=== PATIENT | male | born 1995 | race Caucasian/White ===

== ENCOUNTER 2017-12-29 14:23 | Emergency (ER) | payer OTHER ==
[2017-12-29] MEDS ORDERED: Ketorolac INJ* 30 MG/ML 1 ML VIAL IV PUSH ONE (15:12)
[2017-12-29] MEDS ORDERED: NS 0.9% 1000 ML* 1,000 ML IV ONE (15:13)
--- NOTE | 2017-12-29 15:13 | ED ---
HPI Chest Pain - HPI Summary HPI Summary: This is quincy Duarte documenting for attending Tyron Moore M.D. Pt is a 22 y/o F w/ c/o chest pain radiating to neck and ears onsetting this morning. While mowing the lawn this morning, Pt reports feeling light headed with pain onset afterwards. He drove himself to ED. In the room, pain was rated 10/10 and described as squeezing. Per triage, Pt is having trouble standing and holding his head up. He denies coughing, fever and chills in the room. He notes that he has had a pacemaker since 2011. He claims AICD was meant to be changed recently but has not done so. Pt has Hx of burgada syndrome. On triage, it is noted that Pt states he had several energy drinks today and that nothing aggravates/alleviates Sx. - History of Current Complaint Chief Complaint: EDChestPainROMI Time Seen by Provider: 12/29/17 14:47 Hx Obtained From: Patient Onset/Duration: Started Hours Ago Timing: Constant Current Severity: Severe Pain Intensity: 10 Pain Scale Used: 0-10 Numeric - 10/10 Chest Pain Location: Diffuse Chest Pain Radiates: Yes Chest Pain Radiates To:: Neck, Other - ears Character: Pressure/Squeezing Aggravating Factor(s): Nothing Alleviating Factor(s): Nothing Associated Signs and Symptoms: Positive: Chest Pain, Other: - light headedness, difficulty standing and holding head up. Negative: Fever, Chills, Cough - Allergy/Home Medications Allergies/Adverse Reactions: Allergies Allergy/AdvReac Type Severity Reaction Status Date / Time No Known Allergies Allergy Verified 11/26/13 21:35 PMH/Surg Hx/FS Hx/Imm Hx Endocrine/Hematology History: Denies: Hx Diabetes Cardiovascular History: Reports: Hx Pacemaker/ICD, Other Cardiovascular Problems /Disorders - Hx of Brugada Syndrome Denies: Hx Congestive Heart Failure, Hx Hypertension History: Denies: Hx Renal Disease Sensory History: Denies: Hx Legally Blind - Surgical History Surgery Procedure, Year, and Place: HX OF METAL IN RIGHT EYE. Infectious Disease History: No Infectious Disease History: Denies: Traveled Outside the [place] in Last 30 Days - Family History Known Family History: Negative: Blood Disorder - Social History Alcohol Use: Rare Substance Use Type: Reports: Marijuana Substance Use Comment - Amount & Last Used: occasional Type: Cigarettes Review of Systems Negative: Fever, Chills Positive: Chest Pain - diffuse, radiating to neck and ears Negative: Cough Neurological: Other - light-headed, difficulty standing and holding head up All Other Systems Reviewed And Are Negative: Yes Physical Exam - Summary Physical Exam Summary: GENERAL: Patient is a well developed and nourished male who appears to be uncomfortable. Patient is not in any acute respiratory distress. HEAD AND FACE: Normocephalic EYES: PERRLA, EOMI x 2. EARS: Hearing grossly intact. MOUTH: Oropharynx within normal limits. NECK: Supple, trachea is midline, no adenopathy, no JVD, no carotid bruit. CHEST: Symmetric, no tenderness at palpation LUNGS: Clear to auscultation bilaterally. No wheezing or crackles. CVS: Regular rate and rhythm, S1 and S2 present, no murmurs or gallops appreciated. ABDOMEN: Soft, non-tender. Bowel sounds are normal. No abdominal abnormal pulsations. EXTREMITIES: Full ROM in all major joints, no edema, no cyanosis or clubbing. NEURO: Alert and oriented x 3. No acute neurological deficits. Speech is normal and follows commands. SKIN: Dry and warm Triage Information Reviewed: Yes Vital Signs On Initial Exam: Initial Vitals Temp Pulse Resp BP Pulse Ox 96.5 F 109 20 148/86 100 12/29/17 14:25 12/29/17 14:25 12/29/17 14:25 12/29/17 14:25 12/29/17 14:25 Vital Signs Reviewed: Yes Diagnostics - Vital Signs Vital Signs Temp Pulse Resp BP Pulse Ox 12/29/17 14:25 96.5 F 109 20 148/86 100 - Laboratory Result Diagrams: 12/29/17 15:11 12/29/17 15:11 Lab Statement: Any lab studies that have been ordered have been reviewed, and results considered in the medical decision making process. - Radiology CXR Xray Interpretation: No Acute Changes Radiology Interpretation Completed By: Radiologist - No evidence for acute intrathoracic disease. This report was reviewed by ED physician. - EKG 1435 Cardiac Rate: Tachycardia - Rate of 102 BPM EKG Rhythm: Sinus Tachycardia EKG Interpretation: brugaba syndrome is present Re-Evaluation - Re-Evaluation First Eval Re-Evaluation Time: 15:10 Comment: Discussed test results and the likely possibility of admission. Second Eval Re-Evaluation Time: 17:13 Comment: Dr. Moore was informed Pt changed his mind about admission and that he wanted to leave AMA. Dr. Moore went into the room to discuss the importance of his admission to the hospital for his health given his Sx and test results. Pt still wants to leave hospital and will be discharged to home AMA. Chest Pain Course/Dx - Course Assessment/Plan: Pt is a 22 y/o F w/ c/o chest pain radiating to neck and ears onsetting this morning. While mowing the lawn this morning, Pt reports feeling light headed with pain onset afterwards. He drove himself to ED. In the room, pain was rated 10/10 and described as squeezing. Per triage, Pt is having trouble standing and holding his head up. He denies coughing, fever and chills in the room. He notes that he has had a pacemaker since 2011. AICD was meant to be changed recently but has not done so. Pt has Hx of burgada syndrome. CXR and EKG were done and reviewed, with impressions listed above. Troponin was 0.07. At 14:40, Dr. Cruz was consulted, and he notes possible admission of Pt. At 15 :30, Dr. Palumbo was consulted and accepts admission of Pt with a diagnosis of chest pain. At 17:13, Dr. Moore was informed Pt changed his mind about admission and that he wanted to leave AMA. Dr. Moore went into the room to discuss the importance of his admission to the hospital for his health given his Sx and test results. Pt still wants to leave hospital and will be discharged to home AMA and with a diagnosis of chest pain. - Diagnoses Provider Diagnoses: Chest pain - Provider Notifications Discussed Care Of Patient With: Gerson Cruz Time Discussed With Above Provider: 14:40 Instructed by Provider To: Other - 14:40 -- Dr. Cruz was consulted for admission of patient; he notes possible acceptance of Pt. 15:30 -- Dr. Palumbo was consulted for admission of Pt at 15:30. Dr. Palumbo accepts Pt for admission to hospital. Discharge - Sign-Out/Discharge Documenting (check all that apply): Patient Departure - discharge; Pt was originally admitted to hospital but he changed his mind about admission AMA. - Discharge Plan Condition: Fair Disposition: AGAINST MEDICAL ADVICE Patient Education Materials: Chest Pain (ED) Referrals: Tian Albert DO [Primary Care Provider] - 2 Days Additional Instructions: Return to ED for any new or worsening symptoms. - Billing Disposition and Condition Condition: FAIR Disposition: Against Medical Advice
[2017-12-29] MEDS ORDERED: Ondansetron INJ* 2 MG/ML VIAL IV ONE (15:14)
[2017-12-29 15:25] LABS: ABS Basophils 0 10^3/ul (0-0.2); ABS Eosinophils 0 10^3/ul (0-0.6); ABS Lymphocytes 1.1 10^3/ul (1.0-4.8); ABS Monocytes 0.6 10^3/ul (0-0.8); ABS Neutrophils 9.3 10^3/ul (1.5-7.7); ABS Nucleated RBC 0 10^3/ul; Eosinophil % 0.3 % (0-6); Hematocrit 42 % (42-52); Hemoglobin 14.5 g/dl (14.0-18.0); Lymphocyte % 9.6 % (25-47); Mean Corpuscular HGB Conc 34 g/dl (31-36); Mean Corpuscular Hemoglobin 29 pg (27-31); Mean Corpuscular Volume 86 fL (80-94); Mean Platelet Volume 6.9 um3 (7.4-10.4); Nucleated Red Blood Cells % 0.1; Platelet Count 276 10^3/ul (150-450); Red Blood Count 4.96 10^6/ul (4.00-5.40); Red Cell Distribution Width 14 % (10.5-15)
--- NOTE | 2017-12-29 15:28 | RAD ---
Indication: Chest pain, shortness of breath, dizziness. Comparison: November 26, 2013 CT Technique: Upright AP 1501 hours Report: No focal pulmonary lesion, compelling alveolar consolidation, pleural effusion, pneumothorax. RIGHT ventricular level pacemaker lead. Negative for cardiomegaly. Unremarkable central pulmonary vasculature and mediastinal contours. Unremarkable soft tissue contours and osseous structures. IMPRESSION: #. No evidence for acute intrathoracic disease.
[2017-12-29 15:56] LABS: EGFR Non-African American 96.2 (>60)
[2017-12-29] MEDS ORDERED: Aspirin 81 mg CHEW TAB* 81 MG TAB.CHEW PO ONE (16:09)
[2017-12-29] MEDS ORDERED: Acetaminophen TAB* 325 MG PO PRN (16:14)
[2017-12-29] MEDS ORDERED: Morphine VIAL* 4 MG/ML VIAL (1 ml vial) IV PRN (16:14)
[2017-12-29] MEDS ORDERED: NS 0.9% 1000 ML* 1,000 ML IV SCH (16:15)
[2017-12-29 16:17] VITALS: BP 142/75
--- NOTE | 2017-12-29 17:10 | ECHO ---
Patient: LEÓN PINA [facility] Rec#: [id number] : 1995 Date: 12/29/2017 Age: 22y Height: 170.18 cm / 67.0 in Weight: 85.73 kg / 188.9 lbs Sex: M BSA: 1.97 Room#: -5 Admit Date#: 12/29/2017 Type: Inpatient Referring: Gerson Cruz DO Reading: Gerson Cruz DO Finance Executive: Catia Krueger RDCS CC: Tian Albert DO Transthoracic Echocardiogram Indication: Chest Pain BP: 140/79 HR: 77 Rhythm: Paced Findings History: S/P ICD/pacer, smoker. Technical Comments: The study quality is fair. Completed at 1700. Left Ventricle: The left ventricular chamber size is normal. There is no left ventricular hypertrophy. There is normal left ventricular systolic function. The estimated ejection fraction is 60-65%. Normal left ventricular diastolic filling is observed. Left Atrium: The left atrial chamber size is normal. Right Ventricle: The right ventricular chamber size and systolic function are within normal limits. A pacemaker wire is visualized in the right ventricle. Right Atrium: The right atrial cavity size is normal. A pacemaker wire is visualized in the right atrium. Aortic Valve: The aortic valve is trileaflet. There is no evidence of aortic valve thickening. There is no evidence of aortic regurgitation. There is no evidence of aortic stenosis. Mitral Valve: The mitral valve appears normal in structure and function. There is a trace of mitral regurgitation. There is no evidence of mitral stenosis. Tricuspid Valve: The tricuspid valve leaflets are normal. There is trace tricuspid regurgitation. No pulmonary hypertension is noted. There is no tricuspid stenosis. Pulmonic Valve: The pulmonic valve appears normal. There is trace to mild pulmonic regurgitation. There is no pulmonic stenosis. Pericardium: There is no significant pericardial effusion. Aorta: There is no dilatation of the ascending aorta. The aortic root is normal in size. Pulmonary Artery: The main pulmonary artery is not well visualized. Venous: The inferior vena cava appears normal in size. There is a greater than 50% respiratory change in the inferior vena cava dimension. Conclusions The left ventricular chamber size is normal. There is no left ventricular hypertrophy. There is normal left ventricular systolic function. The estimated ejection fraction is 60-65%. The left atrial chamber size is normal. The right ventricular chamber size and systolic function are within normal limits. A pacemaker wire is visualized in the right ventricle. No pulmonary hypertension is noted. No significant valvular abnormalities appreciated. There is no significant pericardial effusion. None prior for comparison at time of interpretation Measurements Name Value Normal Range RVIDd (AP) 2D 2.5 cm (0.9 - 2.6) RVDdMajor (2D) 4.5 cm (2.2 - 4.4) RAd ISD 4CH 4.4 cm (3.4 - 4.9) RA (A4C)W 4.4 cm (2.9 - 4.6) IVSd (2D) 1 cm (0.6 - 1) LVPWd (2D) 1 cm (0.6 - 1) LVIDd (2D) 3.8 cm (3.6 - 5.4) LVIDs (2D) 2.7 cm - LV FS (2D) 27 % (25 - 45) Aortic Annulus 2.1 cm (1.4 - 2.6) Ao root diameter (2D) 2.9 cm (2.1 - 3.5) Ascending Ao 2.6 cm (2.1 - 3.4) Aortic arch 1.6 cm (1.8 - 3.4) LA dimension (AP) 2D 3.1 cm (2.3 - 3.8) LAd ISD 4CH 4.7 cm (2.9 - 5.3) LA ISD 4CH W 4 cm (2.5 - 4.5) Name Value Normal Range LA ESV SP 4CH (A/L) 57 ml - LA ESV SP 2CH (A/L) 35 ml - LA ESV BP (A/L) 47 ml - LA ESV BP (A/L) index 14 ml/m2 - LA ESV SP 4CH (MOD) 54 ml - LA ESV SP 2CH (MOD) 31 ml - Name Value Normal Range MV E-wave Vmax 1.02 m/sec - MV deceleration time 192.3 msec - MV A-wave Vmax 0.54 m/sec - MV E:A ratio 1.87 ratio - LV septal e' Vmax 0.16 m/sec - LV lateral e' Vmax 0.19 m/sec - LV E:e' septal ratio 6.25 ratio - LV E:e' lateral ratio 5.26 ratio - Name Value Normal Range AV Vmax 1.4 m/sec - AV VTI 25.6 cm - AV peak gradient 7.24 mmHg - AV mean gradient 3.66 mmHg - LVOT Vmax 1.27 m/sec - LVOT VTI 25.59 cm - LVOT peak gradient 6.46 mmHg - LVOT mean gradient 3.61 mmHg - VLAD Vmax 1.17 m/sec - Name Value Normal Range TR Vmax 1.8 m/sec - TR peak gradient 13 mmHg - RAP 3 mmHg - RVSP 16 mmHg - IVC diameter 1.8 cm - Name Value Normal Range PV Vmax 1.01 m/sec - PV peak gradient 4.1 mmHg -
--- NOTE | 2017-12-29 20:06 | HP ---
CC: Dr. Cruz; Dr. Kowalski, Dr. Albert * HISTORY AND PHYSICAL: DATE OF ADMISSION: 12/29/17 - EMERGENCY DEPT. PRIMARY CARE PROVIDER: Dr. Tian Albetr. RESIDENT CARE PROVIDER: Dr. Kowalski from [facility]. CHIEF COMPLAINT: Chest pain. HISTORY OF PRESENT ILLNESS: José Molina is a 22-year-old male with a history of Brugada syndrome. He was seen in our hospital in 2013 when he had an unprovoked syncope. Subsequently, he was transferred to [facility] and Dr. Kowalski placed an ICD in the patient. Since then, he had been doing okay and he has been following up with Dr. Kowalski and ICD checks routinely. 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 The squeezing sensation and the pain was 8/10 in intensity. The patient denies shortness of breath. Denies pleuritic chest pain. The pain is not worse with change of position. He stated after morphine the pain is getting much better. His troponin was 0.07 and he is going to be placed on overnight observation with diagnosis of chest pain. The patient also stated that he smokes approximately a pack and a half a day and he began having problems with morning cough, but he has not been feeling ill. He ate lunch today, which was peanut butter sandwich. PAST MEDICAL HISTORY: Brugada syndrome, status post ICD [place] [address] Kowalski. ALLERGIES: No known drug allergies. FAMILY HISTORY: Positive for grandfather with multiple MIs before the age of 40. The patient's father lives in [place], has history of hypertension. SOCIAL HISTORY: The patient lives with friends of his locally. His mother's name is Ashley Abbott, phone number is [phone]. His mother would be his surrogate. The patient drinks approximately 12 beers a day, smokes a pack and a half cigarettes a day and he started smoking when he was 15. He smokes occasional marijuana. He is single. 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 REVIEW OF SYSTEMS: Please see history of present illness. All the remaining 12 systems reviewed with the patient and were otherwise negative. PHYSICAL EXAMINATION GENERAL: The patient is a very pleasant 22-year-old male, who is in no acute distress. Alert, awake, and oriented x3. VITAL SIGNS: Blood pressure of 142/76, heart rate of 76 and regular, respiratory rate 16, oxygen saturation 100% on room air, temperature 98.4. HEENT: Head: Atraumatic, normocephalic. Eyes: Pupils are equal, reactive to light and accommodation. Oropharynx is clear. Mucosa moist. NECK: Supple. No JVD. No bruits bilaterally. RESPIRATORY: Clear to auscultation bilaterally. On palpation of the chest, there is no point tenderness on bilateral chest palpation. CARDIOVASCULAR: Regular rate and rhythm. No murmur. ABDOMEN: Soft, nontender. Bowel sounds are present in all 4 quadrants. EXTREMITIES: There is no edema. Pulses are +2 bilaterally. No clubbing or cyanosis. NEUROLOGIC: Speech is clear. Cranial nerves II through XII are grossly intact. Motor strength is 5/5 bilaterally. PSYCHIATRIC: Oriented x3 with no evidence of anxiety or depression. SKIN: On evaluation of the skin, no ecchymotic areas or rashes noted. DIAGNOSTIC STUDIES/LAB DATA: Sodium of 139, potassium 3.8, chloride 104, carbon dioxide 25, BUN 14, creatinine 0.96. Liver function tests unremarkable. Glucose of 107. Troponin of 0.07. Brain natriuretic peptide of 11. C- reactive protein of 2.2. D-dimer below 200. White blood cell count was 11.3, hemoglobin of 14.5, hematocrit of 42, and platelets of 279. The patient's portable chest x-ray, impression: "No evidence of acute intrathoracic disease." The patient's EKG showed sinus tachycardia with heart rate of 102 beats per minute with ST elevation in leads V1 to V3. Comparing with an EKG from 2014, the ST changes were more pronounced in 2014 than today. ASSESSMENT AND PLAN: 1. Chest pain. 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 At this point, differential is musculoskeletal versus cardiac. Since the D-dimer was negative , PE is low on differential. It does not appear to be GI related. At this point, the patient is going to be placed on overnight observation on telemetry monitored bed. We will follow up troponins. Dr. Cruz from Cardiology will see the patient in consultation. The patient's echocardiogram was already done and is pending at the time of dictation. We will follow up the patient's troponins and place the patient on aspirin for the time being. I will also obtain total CPK level to further evaluate muscular problem. 2. History of ICD. Due to the patient's dizziness and chest pains, I will obtain interrogation of the patient's ICD. 3. DVT prophylaxis: The patient is low risk and is going to be encouraged with ambulation. TIME SPENT: Approximately 70 minutes was spent on admission of this patient, more than half of that time was spent [id number] with the patient during the interview and physical exam. [id number]/CPS #: [id number] RAMESH
[2017-12-30] MEDS ORDERED: Aspirin 81 mg CHEW TAB* 81 MG TAB.CHEW PO SCH (09:00)
== END 2017-12-29 17:24 | disposition left against medical advice (07) ==
LOC: ED 14:23 → MEDTELE 16:05 → UNDOADMOB 16:05 → ED 17:24
DX: R07.9 Chest pain, unspecified (principal); R42 Dizziness and giddiness; F17.210 Nicotine dependence, cigarettes, uncomplicated
CPT/HCPCS: 36415; 71045; 80053; 82550; 82553; 83605; 83880; 84145; 84484; 85025; 85379; 85730; 86140; 93005; 93306; 96374; 96375; 99284; J1885; J2405

== ENCOUNTER 2018-11-20 17:32 | Emergency (ER) | payer OTHER, MEDICAID ==
[2018-11-20] MEDS ORDERED: NS 0.9% 1000 ML** 1,000 ML IV ONE (17:59)
[2018-11-20 18:11] LABS: ABS Lymphocytes 1.1 10^3/ul (1.0-4.8); ABS Monocytes 0.7 10^3/ul (0-0.8); ABS Neutrophils 9.1 10^3/ul (1.5-7.7); Eosinophil % 0.2 %; Hematocrit 44 % (42-52); Hemoglobin 14.9 g/dL (14.0-18.0); Lymphocyte % 10.2 %; Mean Corpuscular HGB Conc 34 g/dL (31-36); Mean Corpuscular Hemoglobin 29 pg (27-31); Mean Corpuscular Volume 85 fL (80-94); Mean Platelet Volume 6.8 fL (7.4-10.4); Platelet Count 282 10^3/uL (150-450); Red Blood Count 5.24 10^6 /uL (4.18-5.48); Red Cell Distribution Width 14 % (10-15)
[2018-11-20 18:30] LABS: Albumin 4.5 g/dL (3.2-5.2); Albumin/Globulin Ratio 1.9 (1-3); BUN/Creatinine Ratio 13.5 (8-20); C Reactive Protein 14.11 mg/L (<8.01); Calcium 9.3 mg/dL (8.6-10.3); EGFR African American 105.3 (>60); Globulin 2.4 g/dL (2-4); Magnesium 1.8 mg/dL (1.9-2.7); Potassium 4.3 mmol/L (3.5-5.0); Total Bilirubin 0.8 mg/dL (0.2-1.0); Total Protein 6.9 g/dL (6.4-8.9)
[2018-11-20] MEDS ORDERED: Iohexol 300* (CONTRAST) 10 ML SDV IV ONE (18:43)
[2018-11-20] MEDS ORDERED: Ondansetron ODT TAB* 4 MG PO ONE (20:09)
--- NOTE | 2018-11-20 20:10 | ED ---
Influenza-Like Illness - HPI Summary HPI Summary: Patient complains of weakness, lightheadedness, headache, body aches, nausea, diffuse abdominal pain, sore throat, hot flashes 3 days. Denies fever, cough, ear pain, neck stiffness, CP, SOB, V/D, change in urine, change in BM, penile or testicular symptoms. Abdominal pain is intermittent, diffuse, crampy. Patient states he is eating and drinking normally. 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 Abdominal surgical history is none. - History of Current Complaint Chief Complaint: EDGeneral Time Seen by Provider: 11/20/18 17:52 Hx Obtained From: Patient Onset/Duration: Gradual Onset, Lasting Days Severity: Moderate Associated Signs & Symptoms: Myalgia, Sore Throat, Headache - Allergy/Home Medications Allergies/Adverse Reactions: Allergies Allergy/AdvReac Type Severity Reaction Status Date / Time No Known Allergies Allergy Verified 11/20/18 17:40 PMH/Surg Hx/FS Hx/Imm Hx Endocrine/Hematology History: Denies: Hx Anticoagulant Therapy, Hx Diabetes Cardiovascular History: Reports: Hx Pacemaker/ICD, Other Cardiovascular Problems /Disorders - Hx of Brugada Syndrome Denies: Hx Congestive Heart Failure, Hx Hypertension History: Denies: Hx Renal Disease Sensory History: Denies: Hx Legally Blind Opthamlomology History: Denies: Hx Legally Blind EENT History: Denies: Hx Deafness Neurological History: Denies: Hx Dementia Psychiatric History: Denies: Hx Autism - Surgical History Surgery Procedure, Year, and Place: HX OF METAL IN RIGHT EYE. Infectious Disease History: No Infectious Disease History: Denies: Traveled Outside the [place] in Last 30 Days - Family History Known Family History: Negative: Blood Disorder - Social History Alcohol Use: Rare Substance Use Type: Reports: Marijuana Substance Use Comment - Amount & Last Used: occasional Smoking Status (MU): Heavy Every Day Tobacco Smoker Type: Cigarettes Review of Systems Constitutional: Negative Eyes: Negative Positive: Sore Throat Cardiovascular: Negative Respiratory: Negative Positive: Abdominal Pain, Nausea Genitourinary: Negative Positive: Myalgia Skin: Negative Positive: Headache, Weakness Psychological: Normal All Other Systems Reviewed And Are Negative: Yes Physical Exam - Summary Physical Exam Summary: Lung sounds clear to auscultation bilaterally. RRR. ENT exam positive only for oropharyngeal erythema. Abdomen tender in all quadrants including significant pain in right lower quadrant. Triage Information Reviewed: Yes Vital Signs On Initial Exam: Initial Vitals Temp Pulse Resp BP Pulse Ox 98.7 F 94 16 155/99 98 11/20/18 17:35 11/20/18 17:35 11/20/18 17:35 11/20/18 17:35 11/20/18 17:35 Vital Signs Reviewed: Yes Appearance: Positive: Well-Appearing Skin: Positive: Warm Head/Face: Positive: Normal Head/Face Inspection Eyes: Positive: Normal ENT: Positive: Pharyngeal erythema Neck: Positive: Supple Respiratory/Lung Sounds: Positive: Clear to Auscultation Cardiovascular: Positive: Normal Abdomen Description: Positive: Other: Musculoskeletal: Positive: Normal Neurological: Positive: Normal Psychiatric: Positive: Normal AVPU Assessment: Alert - [place] Coma Scale Best Eye Response: 4 - Spontaneous Best Motor Response: 6 - Obeys Commands Best Verbal Response: 5 - Oriented Coma Scale Total: 15 Diagnostics - Vital Signs Vital Signs Temp Pulse Resp BP Pulse Ox 11/20/18 18:09 90 146/89 99 11/20/18 18:02 92 100 11/20/18 17:35 98.7 F 94 16 155/99 98 - Laboratory Lab Results: Lab Results 11/20/18 11/20/18 11/20/18 Range/Units 17:59 18:00 18:00 WBC 11.0 H (3.5-10.8) 10^3/uL RBC 5.24 (4.18-5.48) 10^6 /uL Hgb 14.9 (14.0-18.0) g/dL Hct 44 (42-52) % MCV 85 (80-94) fL MCH 29 (27-31) pg MCHC 34 (31-36) g/dL RDW 14 (10-15) % Plt Count 282 (150-450) 10^3/uL MPV 6.8 L (7.4-10.4) fL Neut % (Auto) 82.8 % Lymph % (Auto) 10.2 % [place] % (Auto) 6.4 % Eos % (Auto) 0.2 % Baso % (Auto) 0.4 % Absolute Neuts (auto) 9.1 H (1.5-7.7) 10^3/ul Absolute Lymphs (auto) 1.1 (1.0-4.8) 10^3/ul Absolute Monos (auto) 0.7 (0-0.8) 10^3/ul Absolute Eos (auto) 0.0 (0-0.6) 10^3/ul Absolute Basos (auto) 0.0 (0-0.2) 10^3/ul Absolute Nucleated RBC 0.0 10^3/ul Nucleated RBC % 0.0 D-Dimer, Quantitative (Less Than 230) ng/mL Sodium 136 (135-145) mmol/L Potassium 4.3 (3.5-5.0) mmol/L Chloride 104 (101-111) mmol/L Carbon Dioxide 26 (22-32) mmol/L Anion Gap 6 (2-11) mmol/L BUN 14 (6-24) mg/dL Creatinine 1.04 (0.67-1.17) mg/dL Est GFR ( Amer) 105.3 (>60) Est GFR (Non-Af Amer) 87.0 (>60) BUN/Creatinine Ratio 13.5 (8-20) Glucose 93 (70-100) mg/dL Calcium 9.3 (8.6-10.3) mg/dL Magnesium 1.8 L (1.9-2.7) mg/dL Total Bilirubin 0.80 (0.2-1.0) mg/dL AST 19 (13-39) U/L ALT 17 (7-52) U/L Alkaline Phosphatase 114 H (34-104) U/L Troponin I (<0.04) ng/mL C-Reactive Protein 14.11 H (<8.01) mg/L Total Protein 6.9 (6.4-8.9) g/dL Albumin 4.5 (3.2-5.2) g/dL Globulin 2.4 (2-4) g/dL Albumin/Globulin Ratio 1.9 (1-3) Lipase (11.0-82.0) U/L Monoscreen Negative (Negative) 11/20/18 11/20/18 Range/Units 18:00 18:35 WBC (3.5-10.8) 10^3/uL RBC (4.18-5.48) 10^6 /uL Hgb (14.0-18.0) g/dL Hct (42-52) % MCV (80-94) fL MCH (27-31) pg MCHC (31-36) g/dL RDW (10-15) % Plt Count (150-450) 10^3/uL MPV (7.4-10.4) fL Neut % (Auto) % Lymph % (Auto) % [place] % (Auto) % Eos % (Auto) % Baso % (Auto) % Absolute Neuts (auto) (1.5-7.7) 10^3/ul Absolute Lymphs (auto) (1.0-4.8) 10^3/ul Absolute Monos (auto) (0-0.8) 10^3/ul Absolute Eos (auto) (0-0.6) 10^3/ul Absolute Basos (auto) (0-0.2) 10^3/ul Absolute Nucleated RBC 10^3/ul Nucleated RBC % D-Dimer, Quantitative 269 H (Less Than 230) ng/mL Sodium (135-145) mmol/L Potassium (3.5-5.0) mmol/L Chloride (101-111) mmol/L Carbon Dioxide (22-32) mmol/L Anion Gap (2-11) mmol/L BUN (6-24) mg/dL Creatinine (0.67-1.17) mg/dL Est GFR ( Amer) (>60) Est GFR (Non-Af Amer) (>60) BUN/Creatinine Ratio (8-20) Glucose (70-100) mg/dL Calcium (8.6-10.3) mg/dL Magnesium (1.9-2.7) mg/dL Total Bilirubin (0.2-1.0) mg/dL AST (13-39) U/L ALT (7-52) U/L Alkaline Phosphatase (34-104) U/L Troponin I 0.00 (<0.04) ng/mL C-Reactive Protein (<8.01) mg/L Total Protein (6.4-8.9) g/dL Albumin (3.2-5.2) g/dL Globulin (2-4) g/dL Albumin/Globulin Ratio (1-3) Lipase 16 (11.0-82.0) U/L Monoscreen (Negative) Result Diagrams: 11/20/18 18:00 11/20/18 18:00 Lab Statement: Any lab studies that have been ordered have been reviewed, and results considered in the medical decision making process. Flu Symptom Course/Dx - Course Course Of Treatment: Patient complains of weakness, lightheadedness, headache, body aches, nausea, diffuse abdominal pain, sore throat, hot flashes 3 days. Denies fever, cough, ear pain, neck stiffness, CP, SOB, V/D, change in urine, change in BM, penile or testicular symptoms. Abdominal pain is intermittent, diffuse, crampy. Patient states he is eating and drinking normally. 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 Abdominal surgical history is none. Physical exam:Lung sounds clear to auscultation bilaterally. RRR. ENT exam positive only for oropharyngeal erythema. Abdomen tender in all quadrants including significant pain in right lower quadrant. Vital signs within normal limits. WBC 11.0. CRP 14. Labs otherwise unremarkable. Chest x -ray negative for acute process. EKG sinus rhythm, similar to prior of . D-dimer 269. Patient is PERC negative, low suspicion for PE. Symptoms most consistent with viral syndrome. - Diagnoses Provider Diagnoses: Viral syndrome Discharge - Sign-Out/Discharge Documenting (check all that apply): Patient Departure Patient Received Moderate/Deep Sedation with Procedure: No - Discharge Plan Condition: Stable Disposition: HOME Prescriptions: Ondansetron ODT TAB* [Zofran 4 MG Odt TAB*] 4 mg PO Q8H PRN 4 Days #14 tab.odt PRN Reason: Nausea Patient Education Materials: Viral Syndrome (ED) Referrals: [facility] [Outside] No Primary Care Phys,NOPCP [Primary Care Provider] - Additional Instructions: Drink plenty of fluids to maintain hydration. Takes Zofran for nausea as directed. Alternate ibuprofen 600 mg and Tylenol 650 mg every 3 hours for headache and body aches. Rest. Return to the ED for any new or worsening symptoms. - Billing Disposition and Condition Condition: STABLE Disposition: Home
[2018-11-20 20:24] VITALS: BP 125/72
== END 2018-11-20 20:24 | disposition home or self-care (01) ==
LOC: ED 17:32
DX: B34.9 Viral infection, unspecified (principal); F17.210 Nicotine dependence, cigarettes, uncomplicated
CPT/HCPCS: 36415; 71046; 74177; 80053; 83690; 83735; 84484; 85025; 85379; 86140; 86308; 93005; 96360; 96361; 99283; Q9967

== ENCOUNTER 2019-02-27 09:47 | Inpatient (IN) | payer OTHER, MEDICAID ==
[2019-02-27] MEDS ORDERED: NS 0.9% 1000 ML** 1,000 ML IV ONE (09:55)
--- NOTE | 2019-02-27 10:03 | ED ---
Altered Mental Status - HPI Summary HPI Summary: 23-year-old male with a history of bipolar disorder presents with suspected olanzapine overdose. Patient reportedly took 28 tablets of 5 mg olanzapine at 8 AM. LEVEL 5 CAVEAT: Full hx and physical are limited secondary to altered mental status. On arrival to the emergency department, patient is somnolent, chronic painful stimuli, with pinpoint pupils. Bottle of empty olanzapine, 30 pills, 5 mg at bedside. - History Of Current Complaint Stated Complaint: OVERDOSE Time Seen by Provider: 02/27/19 09:51 Hx Obtained From: EMS Hx From Patient Unobtainable Due To: Altered Mental Status Onset/Duration: Still Present Timing: Constant Severity Currently: Moderate Character: Responsiveness Aggravating Factor(s): Drug Abuse Alleviating Factor(s): Nothing - Allergies/Home Medications Allergies/Adverse Reactions: Allergies Allergy/AdvReac Type Severity Reaction Status Date / Time No Known Allergies Allergy Verified 11/20/18 17:40 Home Medications: Home Medications Unobtainable 02/27/19 [History Confirmed 02/27/19] PMH/Surg Hx/FS Hx/Imm Hx Previously Healthy: Yes Endocrine/Hematology History: Denies: Hx Anticoagulant Therapy, Hx Diabetes Cardiovascular History: Reports: Hx Pacemaker/ICD, Other Cardiovascular Problems /Disorders - Hx of Brugada Syndrome Denies: Hx Congestive Heart Failure, Hx Hypertension History: Denies: Hx Renal Disease Sensory History: Denies: Hx Legally Blind, Hx Deafness Opthamlomology History: Denies: Hx Legally Blind Neurological History: Denies: Hx Dementia Psychiatric History: Denies: Hx Autism - Surgical History Surgery Procedure, Year, and Place: HX OF METAL IN RIGHT EYE. - Family History Known Family History: Negative: Blood Disorder - Social History Alcohol Use: Rare Hx Substance Use: Yes Substance Use Type: Reports: Marijuana Substance Use Comment - Amount & Last Used: occasional Hx Tobacco Use: Yes Smoking Status (MU): Heavy Every Day Tobacco Smoker Type: Cigarettes Review of Systems - ROS Summary Review of Systems Summary: LEVEL 5 CAVEAT: Pt's full hx and physical is unobtainable d/t altered mental status. Neurological: Other - decreased LOC All Other Systems Reviewed And Are Negative: No Physical Exam - Summary Physical Exam Summary: Constitutional: Somnolent, NAD Skin: Warm, Dry HENT: Normocephalic; Atraumatic. Pupils 2 mm reactive Eyes: Conjunctiva normal Neck: Musculoskeletal ROM normal neck. (-) JVD, (-) Stridor Cardio: Rhythm regular, tachycardic, Heart sounds normal; Intact distal pulses; Radial pulses are 2+ and symmetric. (-) Murmur Pulmonary/Chest wall: Effort normal. (-) Respiratory distress, (-) Wheezes, (-) Rales Abd: Soft, (-) tenderness, (-) Distension, (-) Guarding, (-) Rebound Musculoskeletal: (-) Edema, pacemaker site to L chest wall Lymph: (-) Cervical adenopathy Neuro: somnolent, responds to painful stimuli, moaning Psych: deferred Triage Information Reviewed: Yes Vital Signs Reviewed: Yes Completion Of Physical Exam Limited Due To: Altered Mental Status, Level 5 - [place] Coma Scale Best Eye Response: 2 - To Pain Best Motor Response: 5 - Purposeful Movement Best Verbal Response: 2 - Incomprehensible Words Coma Scale Total: 9 Diagnostics - Laboratory Result Diagrams: 02/27/19 10:02 02/27/19 10:02 Lab Statement: Any lab studies that have been ordered have been reviewed, and results considered in the medical decision making process. - EKG 1013 Cardiac Rate: NL - 78bpm EKG Rhythm: Sinus Rhythm ST Segment: Other Ectopy: None EKG Comparison: No Significant Change Summary of EKG Findings: EKG at 1013 shows NSR at 78bpm with sidleback shaped ST segment in v2 unchanged from prior, c/w Brugada. No STEMI. Re-Evaluation - Re-Evaluation 1st re-eval Re-Evaluation Time: 11:38 Change: Unchanged Comment: Pt stood up, urinated, is walking around the room. Will cancel head CT for now d/t uncontrolled movement. 2nd re-eval Re-Evaluation Time: 14:08 Change: Unchanged Comment: Pt is asleep. Third Eval Comment: 2:45 still somnolent, will admit to [facility] as half life 12-48 hours. Repeat tylenol level ordered Altered Mental Statu Course/Dx - Course Course Of Treatment: A 23-year-old male with history of bipolar disorder, hx brugada s/p pacemaker presents with suspected olanzapine overdose. I suspect AMS secondary to medication use however will check head CT to ensure. DDx: patient has normal O2, BG, hypoxia and hypoglycemia/DKA less likely, differential still includes: alcohol, electrolyte abnl, thyroid issues, infection/sepsis, drug overdose, hypothermia, uremia, trauma. No signs of trauma on exam, CT ordered initially but patient then able to walk and more coherent therefore CT cancelled. Olanzapine half-life 48 hours, suspect patient will have to be admitted for medical observation prior to clearance by psychiatry. Will contact poison control. - Diagnoses Provider Diagnoses: Medication overdose, Suicidal ideation - Provider Notifications Discussed Care Of Patient With: Jordyn Onofre Time Discussed With Above Provider: 14:43 Instructed by Provider To: Admit As Inpatient Discharge ED - Sign-Out/Discharge Documenting (check all that apply): Patient Departure - Discharge Plan Condition: Stable Disposition: ADMITTED TO [facility] Referrals: [facility] [Outside] - Billing Disposition and Condition Condition: STABLE Disposition: Admitted to [facility] - Attestation Statements Document Initiated by Scribe: Yes Documenting Scribe: Maribel Gaspar Provider For Whom Scribe is Documenting (Include Credential): Jasmin Linares MD. Scribe Attestation: I, Maribel Gaspar, scribed for Jasmin Linares MD. on 02/27/19 at 1509. Scribe Documentation Reviewed: Yes Provider Attestation: The documentation as recorded by the scribe, Maribel Gaspar accurately reflects the service I personally performed and the decisions made by me, Jasmin Linares MD. Status of Scribe Document: Viewed Consult Consult: [id number] Onofre about the pts present condition, informing her that the half-life of the drug he overdosed on was over 48 hours. She will be coming to evaluate the pt for admission.
[2019-02-27 10:19] LABS: ABS Eosinophils 0.1 10^3/ul (0-0.6); ABS Lymphocytes 1.6 10^3/ul (1.0-4.8); ABS Monocytes 0.8 10^3/ul (0-0.8); ABS Neutrophils 2.8 10^3/ul (1.5-7.7); Eosinophil % 2.1 %; Hematocrit 42 % (42-52); Hemoglobin 14.3 g/dL (14.0-18.0); Lymphocyte % 30.3 %; Mean Corpuscular HGB Conc 34 g/dL (31-36); Mean Corpuscular Hemoglobin 30 pg (27-31); Mean Corpuscular Volume 87 fL (80-94); Mean Platelet Volume 7.3 fL (7.4-10.4); Nucleated Red Blood Cells % 0.2; Platelet Count 235 10^3/uL (150-450); Red Blood Count 4.86 10^6 /uL (4.18-5.48); Red Cell Distribution Width 13 % (10-15); White Blood Count 5.2 10^3/uL (3.5-10.8)
[2019-02-27 10:37] LABS: Acetaminophen < 15 mcg/mL; Alcohol < 10 mg/dL (<10); Salicylate < 2.50 mg/dL (<30)
[2019-02-27 10:40] LABS: ALT 21 U/L (7-52); AST 19 U/L (13-39); Albumin 4.1 g/dL (3.2-5.2); Albumin/Globulin Ratio 1.8 (1-3); Alkaline Phosphatase 88 U/L (34-104); Anion Gap 8 mmol/L (2-11); BUN/Creatinine Ratio 24.4 (8-20); Blood Urea Nitrogen 20 mg/dL (6-24); CO2 Carbon Dioxide 22 mmol/L (22-32); Calcium 8.6 mg/dL (8.6-10.3); Chloride 110 mmol/L (101-111); EGFR African American 138.5 (>60); EGFR Non-African American 114.5 (>60); Globulin 2.3 g/dL (2-4); Glucose 127 mg/dL (70-100); Potassium 3.9 mmol/L (3.5-5.0); Sodium 140 mmol/L (135-145); Total Protein 6.4 g/dL (6.4-8.9)
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
[2019-02-27] MEDS ORDERED: Lorazepam PYXIS KEY PRN ×2 (12:22→15:37)
[2019-02-27] MEDS ORDERED: LORazepam INJ* 2 MG/ML 1 ML VIAL IV PUSH ONE (12:22)
[2019-02-27] MEDS ORDERED: Lorazepam PYXIS KEY ONE (12:24)
[2019-02-27] MEDS ORDERED: LORazepam INJ* 2 MG/ML 1 ML VIAL IV PUSH PRN (15:37)
--- NOTE | 2019-02-27 16:38 | HP ---
CC: Dr. Richard Chavez * HISTORY AND PHYSICAL: DATE OF ADMISSION: 02/27/19 PRIMARY CARE PROVIDER: Dr. Richard Chavez. CHIEF COMPLAINT: Overdose. HISTORY OF PRESENT ILLNESS: Mr. Molina is a 23-year-old male who was brought to the emergency room by EMS for concerns of overdose. It is unclear how EMS was alerted to the patient's overdose. At this point, the patient is unresponsive and unable to provide any adequate information. There was report to nursing staff at [facility] that the patient may have used meth yesterday. He does have a bottle of olanzapine that was brought in with him. The olanzapine prescription was filled on 02/20/19. Thirty tablets were dispensed. They are 0 tablets in the pill bottle at this point. It is unclear if this is what the patient took. The patient has urinated on himself twice since being in the emergency room. Again, he does not answer any questions. PAST MEDICAL HISTORY: Brugada syndrome, status post ICD insertion in 2013. MEDICATIONS: Only recent prescription is for olanzapine 5 mg p.o. daily. ALLERGIES: No known drug allergies. FAMILY HISTORY: Unobtainable from the patient; however, previous H and P indicates the patient's grandfather had a history of multiple MIs before the age of 40. The patient's father has a history of hypertension. SOCIAL HISTORY: Unobtainable from the patient. Previously, it was noted that he smokes cigarettes, uses marijuana, and drinks beer routinely, though this was dating back to 2018. REVIEW OF SYSTEMS: Unobtainable from the patient. PHYSICAL EXAMINATION GENERAL: The patient is a well-developed young male seen sleeping on a mattress on the floor in child's pose, not responding to voice or light touch. VITAL SIGNS: Blood pressure 155/95, pulse 94, respirations 16, temp 98.1, O2 sat 100% on room air. HEENT: This is an unobtainable exam due to the patient's positioning on the mat on the floor. PULMONARY: Breath sounds are slightly diminished throughout, but clear. CARDIAC: Normal S1, S2. Heart rate is mildly tachycardic. It is regular. There is no lower extremity edema. ABDOMEN: Bowel sounds are present. Abdomen is soft. MUSCULOSKELETAL: The patient does squirm around on the mattress, but never gets out of child's pose. NEURO: Exam is unobtainable at this time. PSYCH: Exam is unobtainable at this time. SKIN: Visible areas of skin are warm and dry and without rash. He does have a few pimples on his back. DIAGNOSTIC STUDIES/LAB DATA: WBC 5.2, hemoglobin 14.3, hematocrit 42, platelets 235. Sodium 140, potassium 3.9, chloride 110, CO2 of 22, BUN 20, creatinine 0.82, glucose 127, lactic acid 0.8, calcium 8.6. Bilirubin 0.4, AST 19, ALT 21, alk phos 88. Albumin 4.1. Salicylates less than 2.5, acetaminophen less than 15, serum alcohol less than 10. EKG reveals sinus rhythm with possible early repolarization, otherwise no acute ST- T wave abnormalities. ASSESSMENT AND PLAN: Mr. Molina is a 23-year-old male who has a history of Brugada syndrome, status post ICD insertion in 2013, who is suspected of overdosing on olanzapine. 1. Probable olanzapine overdose. At this point, the patient is unresponsive. He has sonorous respirations. He does not respond to touch or attempts at repositioning. He has been urinating on himself. At this point, the patient will be admitted to the intensive care unit for further monitoring. He will have a one- to-one sitter. The patient will not be able to leave the hospital until he is evaluated by Psychiatry due to the concerns that this is an intentional overdose. We will have p.r.n. Ativan for agitation. The patient was reportedly agitated and restless earlier during his ER stay and did receive a milligram of Ativan. 2. History of Brugada syndrome. The patient has an ICD in place. He will be monitored on telemetry in the ICU. 3. DVT prophylaxis: According to the Adult Thrombosis Prophylaxis Risk Factor Assessment Guide, the patient has a total risk factor score of 0, making him low risk. SCDs will be utilized as DVT prophylaxis. 4. Code status is full. TIME SPENT: Thirty minutes was spent admitting this patient. [id number]/[facility] #: [id number] RAMESH
[2019-02-27] MEDS: NS 0.9% 1000 ML** 1,000 ML IV SCH (17:26)
[2019-02-28] MEDS: NS 0.9% 1000 ML** 1,000 ML IV SCH (06:37)
--- NOTE | 2019-02-28 10:55 | PN ---
Subjective Date of Service: 02/28/19 Interval History: Pt does not respond to me. Per the 1:1 observer, the patient looked up at her then covered his head with blankets. Objective Active Medications: Sodium Chloride (Ns 0.9% 1000 Ml) 1,000 mls @ 75 mls/hr IV PER RATE ARSEN Last Admin: 02/28/19 06:37 Dose: 75 mls/hr Lorazepam (Ativan Inj*) 0.5 mg IV PUSH Q4H PRN PRN Reason: AGITATION Last Admin: 02/27/19 23:25 Dose: 0.5 mg Miscellaneous (Ativan Pyxis Conde) 1 ea N/A .ATIVAN IV CONDE PRN PRN Reason: PYXIS CONDE Vital Signs - 8 hr 02/28/19 02/28/19 02/28/19 03:00 04:00 05:00 Temperature 97.1 F Pulse Rate 79 84 72 Respiratory 14 25 16 Rate Blood Pressure 148/92 129/75 125/79 (mmHg) O2 Sat by Pulse 98 96 98 Oximetry 02/28/19 02/28/19 02/28/19 06:00 07:00 08:00 Temperature Pulse Rate 74 78 90 Respiratory 19 30 18 Rate Blood Pressure 142/84 128/80 149/91 (mmHg) O2 Sat by Pulse 99 98 98 Oximetry 02/28/19 02/28/19 09:00 09:10 Temperature Pulse Rate 85 Respiratory 16 15 Rate Blood Pressure 114/67 (mmHg) O2 Sat by Pulse 95 Oximetry Oxygen Devices in Use Now: None Appearance: Young male lying in bed, does not respond to me, NAD Eyes: No Scleral Icterus Ears/Nose/Mouth/Throat: Mucous Membranes Moist Respiratory: Symmetrical Chest Expansion and Respiratory Effort, Clear to Auscultation Cardiovascular: NL Sounds; No Murmurs; No JVD, RRR, No Edema Abdominal: NL Sounds; No Tenderness; No Distention Extremities: No Clubbing, Cyanosis Skin: No Nodules or Sclerosis Result Diagrams: 02/27/19 10:02 02/27/19 10:02 Microbiology and Other Data: Microbiology 02/27/19 17:21 Nasal Screen MRSA (PCR) - Final Nasal Mrsa Not Detected Assess/Plan/Problems-Billing Mr Molina is a 23 yo M who likely overdosed on olanzapine. - Patient Problems (1) Overdose Current Visit: Yes Status: Acute Code(s): T50.901A - POISONING BY UNSP DRUG/ MEDS/BIOL SUBST, ACCIDENTAL, INIT SNOMED Code(s): 43888278 Comment: Likely overdosed on olanzapine given the pill bottle is empty and it was just filled on 02/20/19. Urine drug screen never obtained. Will try to get today. Psych consult ordered. (2) Brugada syndrome Current Visit: Yes Status: Acute Code(s): I49.8 - OTHER SPECIFIED CARDIAC ARRHYTHMIAS SNOMED Code(s): 437633362 Comment: Pt has pacer. (3) DVT prophylaxis Current Visit: Yes Status: Acute Code(s): Z29.9 - ENCOUNTER FOR PROPHYLACTIC MEASURES, UNSPECIFIED SNOMED Code(s): 273801212 Comment: SCDs (4) Full code status Current Visit: Yes Status: Acute Code(s): Z78.9 - OTHER SPECIFIED HEALTH STATUS SNOMED Code(s): 654212697
[2019-02-28 13:28] LABS: Urine Benzodiazepine Screen None Detected (None Detect); Urine Opiates Screen None Detected (None Detect)
--- NOTE | 2019-02-28 16:29 | CONS ---
CONSULTATION REPORT: DATE OF CONSULT: 02/28/19 REASON FOR CONSULT: Psychiatric consult requested by Dr. Jordyn Onofre on this 23- year-old male who was brought in by EMS from his friend's apartment after suspected overdose on prescribed olanzapine. He was admitted to the intensive care unit for care and consultation was requested to help decide appropriate disposition. SOURCE OF INFORMATION: The patient is a poor historian. He appears to have difficulty staying awake. Nursing staff suspect that he has been playing possum to avoid interacting with clinical staff. This note is based on a limited interview with the patient, review of admission data, Dr. Onofre's H&P and collateral information from his ICU nurse. 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 CHIEF COMPLAINT: "I was really upset yesterday when I found out my grandfather passed way in hospice!" HISTORY OF PRESENT ILLNESS: The patient with difficulty relates that he has diagnosis of bipolar disorder, he did not sleep for 4 days, he saw his primary care physician last Monday and he was prescribed olanzapine 5 mg nightly. He explains that he ingested all the remaining pills (28) after finding out of his grandfather's passing. He admits that his intent was to end his life. He describes additional stresses of breakup of a relationship about a month and a half ago with a girlfriend who he felt was using him. REVIEW OF PSYCHIATRIC SYMPTOMS:: He endorses a history of periods of sleeplessness, increased irritability, anger, increased goal directedness. He denies auditory or visual hallucinations or delusions. He admits to anxiety in social settings. He denies previous diagnosis of ADHD or learning disorder. PAST PSYCHIATRIC HISTORY: He gives a history of 2 previous inpatient psychiatric admissions at [facility] for treatment after suicide attempts. He is unable to recall exact dates. He mentions that in one of the suicide attempt, he ran into traffic. LEGAL HISTORY: He reports having had run-ins with the law because of DUIs. He denies being on probation or parole. TRAUMA/ABUSE HISTORY: He denies PTSD symptoms. MEDICATION HISTORY: He was prescribed olanzapine 5 mg at bedtime by his primary care physician, Dr. Chavez, in [place]. He is unable to recall the names of other medications he had been taken previously. PAST MEDICAL HISTORY: Remarkable for Brugada syndrome and status post ICD insertion in 2013. ALLERGIES: No known drug allergies. FAMILY HISTORY: He denies any family of psychiatric illnesses or completed suicides. SUBSTANCE ABUSE HISTORY: The patient asserts that he was formerly a polysubstance abuser who used "every drug one could think of." He went to rehab in 2013 in [place] and then subsequently to [facility] and asserts that he has only been using alcohol every other day, about 10 beers every other day often to the point of intoxication and he was smoking small quantity of marijuana daily. PERSONAL AND SOCIAL HISTORY: He was born in [place], [place]. His father still lives there. His mother lives in this area. The patient has 2 younger paternal half siblings. He is a high school graduate. 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 He has no children. He is not currently dating. He identifies as heterosexual. He has been sexually active and asserts using safe sex practices. He reports having fairly good relationship with his mother. He lives with his friend Valentin in [place], [place]. He informs this publicity writer that his grandfather's will be in [place], [place] next Monday and that he would like to attend. PHYSICAL EXAMINATION: Please refer to Dr. Onofre's history and physical on this patient dated 02/27/19. MENTAL STATES EXAMINATION: Finds a 23-year-old white male who is poorly groomed , unshaven with some body odor. His dressed in hospital gown and is wearing compression boots. He initially feigned difficulty staying awake. His ICU nurse came to the room and asked him to sit up and to talk, and from this point forward, he was better able to communicate. He makes poor eye contact. He presents as guarded and minimally cooperative. His affect is restricted. Mood is upset. Thoughts are linear with an impoverished quality. He denies auditory or visual hallucinations or delusions. Speech is terse and needs to be prompted. He denies current suicidal or homicidal ideation, or urges to self -mutilate and he contracts for safety if discharged. His insight and judgment are limited. Impulse control is fair in this setting. SUMMARY: A 23-year-old male with a history of suicide attempts, psychiatric hospitalizations, previous diagnosis of bipolar disorder, polysubstance dependence who was brought in by ambulance from his friend's apartment where he was found with altered mental status with an empty bottle of olanzapine next to him. He asserts that the intentionally overdosed on prescribed medication because he was upset about the of his maternal grandfather. His medical history as described above. He does admit to history of alcohol and marijuana daily, denies the use of other illicit drugs. He reports being unaware of any family history of psychiatric illnesses or completed suicides. Stressors include of his grandmother, breakup of relationship about a month and a half ago. Given the patient's history of previous inpatient psychiatric admissions, previous diagnosis of bipolar disorder, and previous suicide attempts, he is unsafe for discharge at this point and he will require transfer to the adult inpatient psychiatric unit for observation, evaluation, and treatment. DIAGNOSTIC IMPRESSIONS: 1. Alcohol, cannabis use disorder. 2. History of bipolar disorder. RECOMMENDATION: I communicated with the patient's ICU nurse that the plan would be for him to be transferred to the behavioral service unit when he is medically cleared on emergency status for further care. Thank you very much for the opportunity to participate in Mr. Molina's care!. [id number]/CPS #: [id number] RAMESH
[2019-03-01] MEDS: NS 0.9% 1000 ML** 1,000 ML IV SCH (01:06)
[2019-03-01] MEDS ORDERED: Al Hydrox/Mg Hydrox/Simet LIQ* 30 ML UDC PO PRN (14:16)
[2019-03-01] MEDS ORDERED: Acetaminophen TAB* 325 MG PO PRN (14:16)
[2019-03-01] MEDS ORDERED: hydrOXYzine HCL TAB* 50 MG PO PRN (14:22)
[2019-03-01 14:29] VITALS: BP 148/86
--- NOTE | 2019-03-01 14:29 | CONSULT ---
Identification - Patient Identification Reason for Psychiatric Consultation: Suicidal Ideation -: Patient is a 23 year old, M admitted on 02/27/19. - MHU Identification Employment Status: Employed Hx Psychiatric Hospitalization: Yes History - Objective HPI: José is seen for psychiatric follow up. He continues to deny SI, saying that he was upset about the of his grandfather last week and would like to be discharged by Monday so that he can attend the service. "He wrote in his will that I should be one of the pall bearers." I spoke with Hospitalist attending Lashay Eric who indicated that the patient is medically cleared for transfer to the BSU and patient is aware that this is the plan. Exam Appearance: Well Developed/Nourished Hygiene: Normal Grooming: Well Kept Psychomotor Activities: Normal Exhibits Abnormal Movement: No Attitude and Relatedness: Cooperative Eye Contact: Good - Speech Quality: Unpressured Latencies: Normal Quantity: Appropriate Patient's Decription of Mood: "Okay" Observed Affect: Fair Affect Consistent with: Euthymia Patient's Thought Process: Coherent Thought Content: No Passive Wish, No Suicidal Planning, No Homicidal Ideation, No Paranoid Ideation Experiencing Hallucinations: No, Sensorium is Clear Type of Hallucinations: Visual: No, Auditory: No, Command: No Orientation: Yes Intact, Yes Orientated to Time, Yes Orientated to Place, Yes Orientated to Person Impulse Control: Tenuous Insight and Judgement: Fair Impression - Impression Clinical Impression: 23 y.o. single, white male with a history of affective problems and psychiatric admissions to [facility] currently admitted to the Hospitalist service pending medical stabilization for an intentional, suicidal overdose on 28 pills of olanzapine. Inpatient DSM-V Dx: F32.9 Merits Inpatient Hospitalization: Yes BSU: Problem List - Patient Problems (1) Depression Current Visit: Yes Status: Acute Priority: High Code(s): F32.9 - MAJOR DEPRESSIVE DISORDER, SINGLE EPISODE, UNSPECIFIED SNOMED Code(s): 39193071 Plan - Treatment Plan Treatment Plan: The plan is to transfer the patient down to the BSU pending bed readiness. He will be placed on an involuntary 9.39 legal status. Psych to take over care. Continued Medication Management: Consider Medication Medications: Current Medications Sodium Chloride (Ns 0.9% 1000 Ml) 1,000 mls @ 75 mls/hr IV PER RATE ARSEN Last Admin: 03/01/19 01:06 Dose: 75 mls/hr Lorazepam (Ativan Inj*) 0.5 mg IV PUSH Q4H PRN PRN Reason: AGITATION Last Admin: 02/27/19 23:25 Dose: 0.5 mg Miscellaneous (Ativan Pyxis Rebollar) 1 ea N/A .ATIVAN IV REBOLLAR PRN PRN Reason: PYXIS REBOLLAR - Discharge Plan Discharge Plan: Inpatient Hospitalization
--- NOTE | 2019-03-01 21:08 | DS ---
CC: Dr. Richard Chavez * DISCHARGE SUMMARY: DATE OF ADMISSION: 02/27/19 DATE OF DISCHARGE: 03/01/19 PRIMARY CARE PROVIDER: Richard Chavez MD, [facility]. ATTENDING PHYSICIAN: Jayla Mary MD * (dictated by AMANDA Tapia ). PRIMARY DIAGNOSIS: Olanzapine overdose. SECONDARY DIAGNOSES: 1. Brugada syndrome status post ICD insertion in 2013. 2. Bipolar disorder. 3. History of inpatient psychiatric admissions. CONSULTATIONS WHILE IN THE HOSPITAL: Psychiatry Recommendations: I communicated with the patient's ICU nurse and the plan would be for him to be transferred to the behavioral service unit when he is medically cleared on emergency status for further care. Given the patient's history of previous inpatient psychiatric admission, previous diagnosis of bipolar disorder and previous suicide attempt, he is on taper discharge at this point and he will require transfer to the adult inpatient psychiatric unit for observation, evaluation, and treatment. DISCHARGE MEDICATIONS: Home medications: Olanzapine 5 mg p.o. daily. New home medications: None. Discontinued medications: Olanzapine. HISTORY OF PRESENT ILLNESS/HOSPITAL COURSE: Mr. Molina is a 23-year-old male with past medical history of Brugada syndrome status post ICD insertion, bipolar disorder, history of suicide attempt, who was brought to the emergency department by EMS with concerns for overdose. For full and complete details please see the history and physical dictated by Jordyn Onofre DO, but in short the patient presents brought by EMS. He was unresponsive, unable to provide information. He was noted to have an empty bottle of olanzapine with him. Prescription was filled on 02/20/19 where 30 tablets were dispensed and the bottle was empty. The patient was admitted to the ICU with one-to-one sitter, Ativan p.r.n. agitation. He was bolused with IV fluids and placed on maintenance fluids to which he responded well. The one-to-one was maintained throughout his stay. Urine drug screen was ordered with presumptive positive for amphetamines. Everything else was negative. Psychiatric consultation was ordered and they recommended transfer to inpatient psychiatric unit for observation evaluation and treatment after the patient is medically stable. It is noted that he recently found out his grandfather on hospice, which prompted him to overdose on his olanzapine. At the time of discharge, the patient has no complaints of headache, dizziness, lightheadedness, lethargy , chest pain, shortness of breath, cough, fever, chills, abdominal pain, nausea , vomiting, diarrhea, constipation, myalgias, arthralgias. He notes that his mood has "mellowed." He has had a bowel movement two days ago. He is urinating well, eating and drinking well. He notes that he is eager to be discharged to home for his grandfather's this weekend, but is aware that he will be transferred to BSU at this time. REVIEW OF SYSTEMS: A 10-point review of systems has been performed and all the pertinent positives and negatives are in the HPI. All other systems are negative. PHYSICAL EXAMINATION: Vital Signs: Temperature 97.6 oral, heart rate 73, respiratory rate 16, oxygen saturation 98% on room air, blood pressure 136/74. General: Mr. Molina is a well-developed, well-nourished, normal weight, young, white man, who is sitting up in bed. He appears to be in no acute distress. He has a mildly flat affect. HEENT: PERRL, EOMI, nonicteric sclerae. Hearing grossly intact. Oral mucous membranes are dry. Cardiovascular: Regular rate and rhythm with S1, S2 present without murmurs, rubs, clicks, or gallops. There is no JVD. There is no peripheral edema. Radial and pedal pulses are palpable. Pulmonary: Symmetrical chest expansion without use of accessory muscles. Lungs are clear to auscultation bilaterally without rhonchi, wheezes, or rubs. There is no digital clubbing or cyanosis. Abdomen: Flat, bowel sounds in all quadrants. The abdomen is soft. There is no tenderness to palpation. Musculoskeletal: Full range of motion, without pain or deformities. Neuro: The patient is awake. He is alert and oriented x3 with cranial nerves grossly intact. DISCHARGE PLAN: Mr. Molina is stable for discharge. Mr. Molina will be discharged to BSU. ACTIVITY: As tolerated. DIET: Resume home diet. MEDICATIONS: 1. Discontinue olanzapine. 2. Further medication recommendations per BSU. EDUCATION: 1. Follow up with [facility] after discharge from BSU. 2. Continue follow up with Psychiatry outpatient. 3. Return to the ER or nearest hospital if he experience any worsening of symptoms, chest discomfort, shortness of breath, high fevers, chills, night sweats, dizziness, lightheadedness, loss of consciousness or any other worrisome signs or symptoms. This is a summarized report of a complex medical history and hospital stay. For further details, please see the entire medical record. TIME SPENT: Approximately 30 minutes was spent on this discharge, greater than half that time was spent [id number] with the patient discussing discharge plans and instructions. AMANDA BURROWS [id number]/CPS #: [id number] MTDD
== END 2019-03-01 14:50 | DRG 812 ==
LOC: ED 09:47 → ICU 15:37 → MEDTELE 02-28 13:53
PROVIDERS: ADMIT Hospitalist; ATTEND Internal Medicine
DX: T43.592A Poisoning by other antipsychotics and neuroleptics, intentional self-harm, initial encounter (principal); R40.2122 Coma scale, eyes open, to pain, at arrival to emergency department; R40.2222 Coma scale, best verbal response, incomprehensible words, at arrival to emergency department; F17.210 Nicotine dependence, cigarettes, uncomplicated; R40.2352 Coma scale, best motor response, localizes pain, at arrival to emergency department; Y92.239 Unspecified place in hospital as the place of occurrence of the external cause; F31.9 Bipolar disorder, unspecified; I49.8 Other specified cardiac arrhythmias; Z95.810 Presence of automatic (implantable) cardiac defibrillator; Z91.5 Personal history of self-harm; Z82.49 Family history of ischemic heart disease and other diseases of the circulatory system; Z72.89 Other problems related to lifestyle
CPT/HCPCS: 36415; 80053; 80307; 80320; 80329; 83605; 85025; 87641; 93005; 99285; G0480; J2060

== ENCOUNTER 2019-03-01 15:00 | Inpatient (IN) | payer OTHER, MEDICAID ==
[2019-03-01] MEDS ORDERED: Acetaminophen TAB* 325 MG PO PRN (17:19)
[2019-03-01] MEDS ORDERED: hydrOXYzine HCL TAB* 50 MG PO PRN (17:19)
[2019-03-01] MEDS ORDERED: Al Hydrox/Mg Hydrox/Simet LIQ* 30 ML UDC PO PRN (17:19)
[2019-03-02] MEDS ORDERED: Vitamin THERAPEUTIC TAB PO SCH (09:00)
[2019-03-02] MEDS: Nicotine* 2MG (FRUIT FLAVOR) GUM PO PRN ×3 (14:26→20:19)
--- NOTE | 2019-03-02 16:52 | HP ---
HISTORY AND PHYSICAL: DATE OF ADMISSION: 03/01/19 IDENTIFYING DATA: Mr. Molina is a 23-year-old single male who is tenuously domiciled. He was brought in by ambulance from his friend's apartment after his co-worker and boss found him with altered mental status on 02/27/19. He was admitted to the intensive care unit for suspected overdose on about 28 pills of olanzapine 5 mg daily, where I saw him in consultation. He was subsequently moved to the telemetry unit on 02/28/19 for continued followup care, was again seen in consultation by Dr. Lewis, and it was recommended at both consultations that he be transferred to the inpatient psychiatric unit for involuntary admission when medically cleared. REASON FOR ADMISSION: He has history of 2 previous serious suicide attempts. He was brought in after a serious overdose on his prescribed medication. He does not have any followup care in place. HISTORY OF PRESENT ILLNESS: He reports having a diagnosis of bipolar disorder and he complains of periods of sleeplessness, increased energy, irritability, mood lability, impulsivity, and aggressive behavior. For this admission, he relates that last weekend he spent about 4 days without sleep, and on Monday, he saw his primary care physician, Dr. Chavez, in [place], who prescribed him olanzapine 5 mg daily for sleep and for mood. He initially omitted to mention that he had relapsed on crystal meth, but when confronted today about his urine toxicology screen, he admitted that he that he had relapsed on crystal meth about a week ago and that his current employer and his mother were aware and trying to arrange for outpatient substance abuse treatment for him after discharge. He perseveres about wanting discharge home before Monday to be able to attend his maternal grandfather's in [place], [place]. He asserts that the news of his grandfather's is what triggered his overdose on 02/27. He additionally reports his relapse on drugs and breakup of relationship about a month and a half ago. REVIEW OF PSYCHIATRIC SYMPTOMS: He denies persistently depressed mood. He endorses symptoms of irritability, decreased need for sleep, increased goal directedness, mood lability, and impulsivity. The patient admits that his symptoms have been in the context of daily alcohol and marijuana use and recent relapse on methamphetamines. He endorses anxiety in social setting. He denies excessive worrying, panic attacks, previous history of trauma or abuse or PTSD symptoms. He denies previous diagnosis of ADHD or learning disorder. PAST PSYCHIATRIC HISTORY: History of 2 previous inpatient psychiatric admissions in 2015 and 2016 at [facility], both times after serious suicide attempts. In 2016 admission, he reportedly ran into traffic. His second admission at [facility] was followed by transfer to inpatient rehab that he asserts that he completed and then he spent time in [facility]. He is not currently connected with either outpatient substance abuse or psychiatric treatment. His medications are being prescribed by his primary care physician. LEGAL HISTORY: He has had run-ins with the law because of DUIs, but he denies being on probation or on parole. SUBSTANCE ABUSE HISTORY: The patient asserts that he was formerly a polysubstance abuser and that he used "every drug you could think of." He went to rehab in 2013 in [place] and subsequently to [facility] and asserts that he has since only been using alcohol and cannabis every day. He estimates drinking about 10 beers every other day or sometimes to the point of intoxication. He smokes small quantity of marijuana daily and he admits to having relapsed on crystal meth about a week ago. PAST MEDICAL HISTORY: Remarkable for Brugada syndrome and status post ICD insertion in 2013. He is also status post overdose of olanzapine on 02/27/19. ALLERGIES: No known drug allergies. FAMILY HISTORY: The patient reports family history of alcoholism and posttraumatic stress disorder in his biological father, who is a . He is aware of other paternal relatives with alcoholism. He denies knowledge of any other family history of psychiatric illnesses or completed suicides. PERSONAL AND SOCIAL HISTORY: He was born in [place], [place]. His father still lives there. His mother lives in this area. He has an older maternal half- sister in [place] and 2 younger paternal half-siblings. He is a high school graduate. He went to vocational school for maintenance. 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 He has been staying with his friend, Valentin, in [place]. He has learned since his admission that her landlord is not allowing him back on the property. He asserts that he has been selected as a pallbearer for his grandfather's on Monday morning in [place], [place]. He identifies as heterosexual. He has been sexually active and asserts using safe sex practices. He broke up relationship with his girlfriend about a month and a half ago because he felt she was using him. REVIEW OF MEDICAL SYMPTOMS: Negative. PHYSICAL EXAMINATION GENERAL: A well-appearing 23-year-old white male who does not appear to be in any acute physical distress. He is alert, oriented x3. ADMISSION VITAL SIGNS: Blood pressure is 145/91, pulse is 95, respirations 16, temp 98. HEENT: Head: Atraumatic, normocephalic, symmetrical. Eyes: PERRLA. Tympanic membranes intact. Sclerae anicteric. Conjunctivae clear. NECK: Trachea midline, freely mobile. No cervical lymphadenopathy. No nuchal rigidity. LUNGS: Clear to auscultation bilaterally. HEART: Regular rate and rhythm. S1, S2. No murmurs, gallops, or rubs. BREASTS: No mass or discharge. ABDOMEN: Soft, nontender. No masses, organomegaly, or rebound tenderness. No scars noted. Active bowel sounds in all 4 quadrants. GENITALIA: Exam not performed. RECTAL: Exam not performed. EXTREMITIES: No pain or limitation in the range of movement. Muscle strength is grade 5/5 in all 4 extremities. NEUROLOGIC: Cranial nerves II through XII are intact. Cerebellar function intact. STRUCTURAL EXAM: The patient was examined in both supine and upright positions. No gross AP or lateral asymmetry. Gait and movement are within normal limits. SKIN: Skin texture, turgor, and pigmentation are within normal limits. LABORATORY DATA: On admission, his urine drug screen was positive for methamphetamines. CBC on admission within normal limits. Complete metabolic panel shows BUN/creatinine ratio of 24.4, nonfasting glucose of 137. [place] screen was negative. MENTAL STATUS EXAMINATION: Finds an averagely built 23-year-old white male who looks his stated age. He is adequately groomed, casually dressed. He makes fair eye contact. He presents as cooperative. No abnormal psychomotor activity is observed. Speech is spontaneous; normal, rate, rhythm, and volume. His affect is constricted. Mood is anxious. Thoughts are linear and goal directed. No evidence of formal thought disorder and no overt delusions. He denies auditory or visual hallucination. He avidly denies suicidal ideation, homicidal ideation or urges to self-mutilate and he contracts for safety. His insight and judgment are limited. Impulse control is good in this setting. He is alert. He is oriented to time, place, and person. Attention, memory, and concentration are all fair. Fund of knowledge is adequate. Intelligence is estimated to be in normal average range. SUMMARY: A 23-year-old male with history of previous suicide attempts, previous psychiatric hospitalizations, polysubstance dependence, previous diagnosis of bipolar disorder, and polysubstance dependance who was brought in by ambulance from his friend's apartment where he was found with altered mental status with an empty bottle of olanzapine next to him. He asserts that he intentionally overdosed on the prescribed medication to end his life because he was upset about finding out that his maternal grandfather had that day. His medical history is as described above. He admits to daily use of alcohol, marijuana and to having relapsed on crystal meth about a week ago. There is family history of alcoholism and posttraumatic stress disorder in his biological father. He denies any family history of completed suicides. Stressors include the recent of his grandfather, relapse on crystal meth, breakup of relationship, and now homelessness. DIAGNOSTIC IMPRESSIONS: 1. Alcohol, cannabis, and methamphetamine use disorder. 2. History of bipolar disorder. TREATMENT PLAN: Admit to mental health unit, 15-minute checks, full code status. Legal status is emergency. Initiate comprehensive milieu, individual, and group psychotherapeutic supports. We will continue withholding prescribed olanzapine as he is no longer reporting any mood symptoms and reports adequate sleep. He will also be required to attend [facility] programming while admitted. Discharge planning will involve referrals for outpatient substance abuse and psychiatric treatment. [id number]/CPS #: [id number] RAMESH
[2019-03-03] MEDS: Nicotine* 2MG (FRUIT FLAVOR) GUM PO PRN ×2 (08:41→17:36)
[2019-03-04] MEDS: Nicotine* 2MG (FRUIT FLAVOR) GUM PO PRN ×2 (08:36→12:20)
[2019-03-04 09:06] VITALS: BP 135/77
--- NOTE | 2019-03-04 18:32 | DS ---
DISCHARGE SUMMARY: DATE OF ADMISSION: 03/01/19 DATE OF DISCHARGE: 03/04/19 DISCHARGE DIAGNOSES: As follows: [place] I: 1. Unspecified depressive disorder, rule out bipolar depression versus amphetamine- induced depressive disorder. 2. Amphetamine use disorder. [place] II: Deferred. CONDITION AT THE TIME OF DISCHARGE: Improved. The patient is going to groups this morning. He has been safe on all checks since his arrival on our unit. Since his admission to the hospital medical service, he has steadfastly denied any further suicidal ideations. For collateral information, I spoke with his godmother, a woman named Mila Hammer who indicates that the patient is back to his psychiatric baseline and she is in support of the discharge plan. The patient is agreeable with receiving both mental health and substance abuse services at the [facility] in [place], [place]. At this time, José has done well on our service and is appropriately requesting discharge from the hospital. We see no barriers to him receiving definitive services in the outpatient setting. MENTAL STATUS EXAM: At the time of discharge, José is a young white male with reddish hair and a yang who is calm, cooperative, clean, well groomed, makes good eye contact. It is easy to establish a rapport with him. Mood is euthymic with a full affect. Thought process is linear and goal directed. Thought content is significant for his desire to be discharged from the hospital. He is denying suicidal or homicidal ideations. He denies auditory or visual hallucinations. Insight and judgment are fair given his willingness to follow up with services in the community. Cognitively, he is awake and alert with what would appear to be average intellect. DISCHARGE INSTRUCTIONS: To the patient: Part A: Medications: None. Part B: Diet is regular. Part C: Activities: As tolerated. The patient is a smoker; however, he is declining the use of continued nicotine replacement therapy. Instead, we have granted him the [place] Smokers' Quitline number at [phone]. There are no laboratory or diagnostic studies pending at the time of discharge. Part D: Followup care: The patient has an intake appointment at the [facility] on 03/06/19 at 12 o'clock p.m. There, he will receive an evaluation also for comorbid substance abuse and the services are provided in the same clinic setting. Part E: Substance abuse followup: Again, the patient is referred to the [facility] where co-occurring disorders are mutually treated. Part F: Disposition: The patient is going to live in his godmother's home in [place], [place]. HOSPITAL COURSE: Part A: Reason for admission: The patient is a 23-year-old single white male who is tenuously domiciled with an alleged history of bipolar disorder, but also concomitant use of amphetamines and other drugs who is transferred from the medical service following intensive care treatment for an overdose of 28 pills of olanzapine 5 mg strength. He reports having a diagnosis of bipolar disorder and complains of periods of sleeplessness, increased energy, irritability, mood lability, impulsivity, and aggressive behavior. He reports that prior to this overdose over the weekend, he was only getting about 4 days of sleep at a time and on Monday, he saw his primary care physician, Dr. Chavez in [place] who prescribed him olanzapine 5 mg daily for sleep and improved mood. He initially admitted to mention that he had relapsed on crystal meth, but when confronted about his urine toxicology screen, he admitted that he relapsed on crystal meth about 1 week prior and that his current employer as well as his godmother were trying to arrange outpatient help for him after discharge. The patient stated that his main stressor was the of his maternal grandmother just prior to admission and he is now eager to attend his grandfather's service where he has been identified as one of the pall bearers An additional stressor is that he broke up with a relationship of about the previous month and a half. Part B: Psychiatric treatment rendered: The patient was transferred from the 4th floor medical unit down the behavioral science unit where he was placed on q.15- minute checks for his own safety. He was calm and cooperative throughout the hospital experience. Initially, he avoided groups, but started attending towards the tail end of his hospital stay. He encouraged us to call his godmother, Mila Hammer, for collateral information and she indicated that she felt after several family visits that he was back to his baseline and ready to return to her home. She was also committed to making sure that he receives treatment in the community both for drugs as well as mental health concerns. Because of uncertainty over the diagnosis whether it represented a primary mental health issue versus a substance abuse issue, we decided not to start medication. The patient's suicidal ideations have completely resolved at this time and he is appropriately seeking care in a less restrictive setting. At this time, I see no barrier to Mr. Molina receiving appropriate services in the community. [id number]/CPS #: [id number] RAMESH
== END 2019-03-04 12:55 | disposition home or self-care (01) | DRG 753 ==
LOC: BSU 15:00
PROVIDERS: ADMIT Psychiatry & Neurology Psychiatry; ATTEND Psychiatry & Neurology Psychiatry
DX: F31.9 Bipolar disorder, unspecified (principal); R45.851 Suicidal ideations; F15.94 Other stimulant use, unspecified with stimulant-induced mood disorder; Z81.1 Family history of alcohol abuse and dependence; Z81.8 Family history of other mental and behavioral disorders; Z72.89 Other problems related to lifestyle; F14.90 Cocaine use, unspecified, uncomplicated; Z79.899 Other long term (current) drug therapy
CPT/HCPCS: 99222; 99238; A9270-GY

== ENCOUNTER 2019-07-31 19:37 | Observation (INO) | payer MEDICAID, OTHER ==
[2019-07-31] MEDS ORDERED: Dextrose 50% Syringe 50 ML* 25 GM/50 ML SYRINGE IV PUSH ONE ×2 (19:45→19:47)
[2019-07-31] MEDS ORDERED: NS 0.9% 1000 ML** 1,000 ML IV ONE (19:45)
--- NOTE | 2019-07-31 19:53 | ED ---
Syncope/Near Syncope - HPI Summary HPI Summary: 24 year old M with hx pacemaker and Brugada syndrome arriving via ambulance to [facility] after becoming unresponsive 1 hour ago. Patient was discharged from [facility] yesterday for hemoptysis per EMS. Patient was with family today when he told family to call 911 and suddenly became unresponsive per EMS. When EMS arrived to scene, patient was found unresponsive and with stuttering respiratory pattern. Family not able to provide much history per EMS. Family states that patient was drinking ETOH today per EMS. EMS gave Narcan with no change in symptoms. 2 IVs established. Patient placed on supplemental nasal cannula oxygen. O2 sat 100 on [place] oxygen per EMS. Glucose 65 per EMS. Patient does not take any medications per EMS. - History Of Current Complaint Hx Obtained From: EMS Onset/Duration: Lasting Hours - 1, Still Present Timing: Constant Context: Witnessed Aggravating Factor(s): Nothing Alleviating Factor(s): Nothing - Allergies/Home Medications Allergies/Adverse Reactions: Allergies Allergy/AdvReac Type Severity Reaction Status Date / Time No Known Allergies Allergy Verified 11/20/18 17:40 Home Medications: Home Medications NK [No Home Medications Reported] 07/31/19 [History Confirmed 07/31/19] PMH/Surg Hx/FS Hx/Imm Hx Endocrine/Hematology History: Denies: Hx Anticoagulant Therapy, Hx Diabetes Cardiovascular History: Reports: Hx Pacemaker/ICD, Other Cardiovascular Problems /Disorders - Hx of Brugada Syndrome post ICD placement Denies: Hx Congestive Heart Failure, Hx Hypertension History: Denies: Hx Renal Disease Sensory History: Denies: Hx Contacts or Glasses, Hx Legally Blind, Hx Deafness, Hx Hearing Aid Opthamlomology History: Denies: Hx Contacts or Glasses, Hx Legally Blind Neurological History: Denies: Hx Dementia Psychiatric History: Reports: Hx Anxiety - per pt, Hx Attention Deficit Hyperactivity Disorder - per pt, Hx Depression - per pt, Hx Inpatient Treatment , Hx Bipolar Disorder, Hx Suicide Attempt, Hx Substance Abuse Denies: Hx Autism, Other Psychiatric Issues/Disorders - possible BIPOLAR dx, psychiatric hospitalization in past. Drug use. - Surgical History Surgery Procedure, Year, and Place: HX OF METAL IN RIGHT EYE. Pacemaker/ defibrillator placement, 2013, [facility] Infectious Disease History: Yes Infectious Disease History: Denies: Traveled Outside the [place] in Last 30 Days - Family History Known Family History: Positive: Other - alcoholism, PTSD - Social History Alcohol Use: Daily Hx Substance Use: Yes Substance Use Type: Reports: Marijuana Substance Use Comment - Amount & Last Used: meth, marijuana Hx Tobacco Use: Yes Smoking Status (MU): Heavy Every Day Tobacco Smoker Type: Cigarettes - Additional Comments History Additional Comments: pacemaker Brugada syndrome Review of Systems - ROS Summary Review of Systems Summary: Home Medications Medication Instructions Recorded Confirmed Type NK [No Home Medications Reported] 07/31/19 07/31/19 History Positive: Other - stuttering respiratory pattern Neurological/Mental Status: Other - unresponsive All Other Systems Reviewed And Are Negative: Yes Physical Exam - Summary Physical Exam Summary: General: Well-developed, Well-nourished MALE. He is unresponsive. He is having a stuttering-like respirations. HEENT: Normocephalic, Atraumatic. Eyes: Conjuctiva normal, pupils are 6-mm bilaterally, and equal, round, reactive to light bilaterally. Oropharynx: Clear, mucous membranes moist, (-) exudates. Neck: Soft, FROM, (-) lymphadenopathy, (-) thyromegaly, (-) JVD. Cardiovascular: Normal sinus rhythm, (-) murmur. Lungs: Clear to auscultation bilaterally (-) wheezes, (-) rales, (-) rhonchi. Abdomen: Soft, non-tender, non-distended, (-) organomegaly, normal bowel sounds. Back: (-) CVA tenderness Extremities: No edema. Skin: Warm, dry, (-) rash. He has a healed scar on his left upper chest wall Neuro: He is unresponsive. He moves all extremities equally. He does not respond to pain. Psychiatric: Unable to assess GCS: 6 Triage Information Reviewed: Yes Vital Signs On Initial Exam: Initial Vitals Temp Pulse Resp BP Pulse Ox 97.1 F 100 13 166/92 100 07/31/19 19:41 07/31/19 19:41 07/31/19 19:41 07/31/19 19:41 07/31/19 19:41 Vital Signs Reviewed: Yes - Soldier Coma Scale Best Eye Response: 4 - Spontaneous Best Motor Response: 1 - None Best Verbal Response: 1 - None Coma Scale Total: 6 Procedures - Sedation Patient Received Moderate/Deep Sedation with Procedure: No Diagnostics - Vital Signs Vital Signs Temp Pulse Resp BP Pulse Ox 07/31/19 19:41 97.1 F 100 13 166/92 100 - Laboratory Result Diagrams: 07/31/19 20:19 07/31/19 20:19 Lab Statement: Any lab studies that have been ordered have been reviewed, and results considered in the medical decision making process. - Radiology CXR Radiology Interpretation Completed By: ED Physician - No acute disease. No infiltrate. No pleural effusion. Pending official report. - CT Brain CT Interpretation Completed By: Radiologist - 1. No acute intracranial abnormality. 2. There is a cystic collection of fluid within the subcutaneous tissues of the left upper neck posteriorly measuring 2.1 x 1.4 cm. Clinical correlation is recommended. ED physician has reviewed this imaging report. Chest/Abdomen/Pelvis CTA CT Interpretation Completed By: Radiologist - 1. A filling defect is identified within a pulmonary arterial branch to the right upper lobe, suspicious for pulmonary embolism. 2. Within the left lower lobe of the lung, there is a 4-5 mm nodule. There is a minimal increase in size of this nodule. 3. Additional findings described above. 1. No aneurysm or dissection of the abdominal aorta. 2. Within the body of the pancreas, there is a 6 mm hypodense lesion. Differential considerations include pancreatic cyst, pseudocyst, IPMN, and cystic neoplasm. A similar finding is visualized on the prior study. There is an additional subcentimeter hypodense focus or lesion in the region the pancreatic head, although this is likely contributed by volume averaging when correlated with the sagittal sequence. A nonemergent MRI of the abdomen with/ without contrast is recommended. 3. Additional findings described above. ED physician has reviewed this imaging report. - EKG 1951 Cardiac Rate: NL - 87 BPM EKG Rhythm: Sinus Rhythm Summary of EKG Findings: EKG at 1951 reveals normal sinus rhythm with rate of 87 BPM, no acute changes, no ischemic changes. This EKG was reviewed and interpreted by Dr. Ceron. Re-Evaluation - Re-Evaluation First Eval Re-Evaluation Time: 20:51 Comment: aware of lactic 2.2 Second Eval Re-Evaluation Time: 21:31 Comment: Patient is awake and alert. Patient admits to drinking ETOH today. Patient states he was seen at walk-in clinic in [place] yesterday 07/30/2019 for chest pain, hemoptysis, weakness, fatigue where he had EKG done. He states the walk-in clinic was concerned that patient may have had stroke in his sleep the night before or blood clot in his lung. He was sent to [facility] yesterday, had blood work and CXR done, dx bronchitis, and was discharged. No recreational drugs. No marijuana. He states he only drinks ETOH. No hx seizure Third Eval Re-Evaluation Time: 23:24 Comment: [facility] radiologist called to report CTA findings Fourth Eval Re-Evaluation Time: 23:27 Comment: patient is agreeable to admission Course/Dx Course Of Treatment: 24-year-old male presents from home by ambulanceafter episode of unresponsiveness. He was drinking with his friends. Apparently patient got up and told his friends to call 911. Then collapsed. EMS arrived they were told that the patient was breathing funny. Had stopped breathing a few times. Patient has a history of a pacemaker placed when he was 18 for Brugada syndrome. patient was reported as stable en route with odd breathing pattern. Described as guppy breathing or stuttering. blood sugar is reported 65. Patient was unresponsive upon arrival. He was breathing with steady pulse. Unresponsive to pain. Opening eyes spontaneously. Patient had Narcan in the field with no response. Physical exam demonstrated stable blood pressure and heart rate. Respirations between 8 and 12. Looked somewhat post ictal upon arrival. Patient received an amp of D50 and seemed to quickly wake up. He then was alert and oriented 3. Appropriate and answering questions. Blood work demonstrated elevated ARTUR 240. ABG showed normal pH and CO2. Ammonia level was elevated at 76. Lactic acid 2.2. Urine drug screen was negative. CT of the brain was normal. CT chest and abdomen demonstrated a pulmonary embolism. Patient started on lovenox and referred to the hospitalist for admission. In the ED course, the patient was given normal saline fluids, dextrose, Lovenox. - Diagnoses Provider Diagnoses: Pulmonary edema, Syncope, Acute alcohol intoxication, Brugada syndrome, Tobacco use - Physician Notifications Discussed Care of Patient With: Shashank Adhikari Time Discussed With Above Provider: 23:26 Instructed by Provider To: Admit As Inpatient Discharge ED - Sign-Out/Discharge Documenting (check all that apply): Patient Departure - Discharge Plan Condition: Stable Disposition: ADMITTED TO [facility] - Billing Disposition and Condition Condition: STABLE Disposition: Admitted to [facility] - Attestation Statements Document Initiated by Scribe: Yes Documenting Scribe: Aria Ivan Provider For Whom Lucianoibe is Documenting (Include Credential): Daniela Ceron MD Scribe Attestation: IAria, scribed for Daniela Ceron MD on 08/01/19 at 0227. Scribe Documentation Reviewed: Yes Provider Attestation: The documentation as recorded by the scribeAria accurately reflects the service I personally performed and the decisions made by me, Daniela Ceron MD Status of Scribe Document: Viewed
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
[2019-07-31 20:26] LABS: ABS Eosinophils 0.1 10^3/ul (0-0.6); ABS Lymphocytes 1.5 10^3/ul (1.0-4.8); ABS Monocytes 0.3 10^3/ul (0-0.8); ABS Neutrophils 6.5 10^3/ul (1.5-7.7); Eosinophil % 0.7 %; Hematocrit 47 % (42-52); Mean Corpuscular HGB Conc 34 g/dL (31-36); Mean Corpuscular Hemoglobin 30 pg (27-31); Mean Corpuscular Volume 87 fL (80-94); Mean Platelet Volume 6.7 fL (7.4-10.4); Platelet Count 299 10^3/uL (150-450); Red Cell Distribution Width 13 % (10-15); White Blood Count 8.4 10^3/uL (3.5-10.8)
[2019-07-31 20:32] LABS: Urine Appearance Clear; Urine Bilirubin Negative (Negative); Urine Blood 1+ (Negative); Urine Color Colorless; Urine Glucose 1+(50 mg/dL) (Negative); Urine Ketones Negative (Negative); Urine Nitrite Negative (Negative); Urine Protein Negative (Negative); Urine Specific Gravity 1.003 (1.010-1.030); Urine Urobilinogen Negative (Negative)
[2019-07-31 20:39] LABS: Urine Benzodiazepine Screen None Detected (None Detect); Urine Opiates Screen None Detected (None Detect)
[2019-07-31 20:41] LABS: Urine Bacteria 1+ (Absent); Urine Red Blood Cell Trace(0-2/hpf) (Absent); Urine White Blood Cell Trace(0-5/hpf) (Absent)
[2019-07-31 20:44] LABS: Albumin 4.6 g/dL (3.2-5.2); Albumin/Globulin Ratio 1.8 (1-3); BUN/Creatinine Ratio 14.1 (8-20); Calcium 8.6 mg/dL (8.6-10.3); EGFR African American 162.3 (>60); EGFR Non-African American 134.1 (>60); Globulin 2.6 g/dL (2-4); Magnesium 2.1 mg/dL (1.9-2.7); Potassium 3.7 mmol/L (3.5-5.0); Total Bilirubin 0.3 mg/dL (0.2-1.0); Total Protein 7.2 g/dL (6.4-8.9)
[2019-07-31 20:45] LABS: INR 0.96 (0.82-1.09)
[2019-07-31 21:10] LABS: TSH (Thyroid Stimulating Horm) 0.49 mcIU/mL (0.34-5.60)
[2019-07-31] MEDS ORDERED: Iohexol 350* (CONTRAST) 500 ML MDV IV ONE (21:58)
[2019-07-31 22:01] LABS: Erythrocyte Sed Rate 1 mm/Hr (0-14)
[2019-07-31] MEDS ORDERED: Enoxaparin(*) 80 MG/0.8 ML SYR SUBCUT ONE (23:29)
[2019-08-01 02:08] LABS: Activated Partial Thrombo Time 33.9 seconds (26.0-38.0)
[2019-08-01] MEDS: Melatonin 3 MG TAB PO SCH ×2 (03:07→21:02)
--- NOTE | 2019-08-01 03:41 | HP ---
HISTORY AND PHYSICAL: DATE OF ADMISSION: 08/01/19 ADMITTING PROVIDER: Shashank Adhikari MD PRIMARY CARE PROVIDERS: Dr. Chavez and Candi Ye NP at [facility]. CHIEF COMPLAINT: He was found unresponsive and "stopped breathing four times"; longstanding hemoptysis and intermittent chest pains. HISTORY OF PRESENT ILLNESS: José Molina is a 24-year-old male with past medical history of Brugada syndrome, status post ICD in 2013; increasing alcohol abuse over the last 2 months; anxiety; depression; history of suicide overdose attempt last February. He started drinking around 10:30 this morning after he was given the day off his work. He had notably gone to [place] walk-in with concern on 07/30/19, with episode of a severe chest pain and coughing up a handful of blood the day prior on 07/29/19. His blood pressure had been elevated to the 180s and Candi, the [facility] provider, there thought maybe he had a pulmonary embolism and was referred to [facility] for further evaluation. There, he had a CBC, CMP, troponin, EKG, chest x-ray, and was discharged with ketorolac. He has been drinking very heavily over the last 2 months and the day prior to admission, he had half of what sounds like a liter bottle of whiskey and then 15 beers. He normally has been having between 13 and 20 beers after work for the last 2 months. He reportedly told his friend that "called 911" and he later on went unresponsive. He was [place] [facility]. In the field, he was noted have a low blood sugar of 67, he got some dextrose here. He continued to be unresponsive and a CTA of the chest , abdomen, and pelvis was obtained, which demonstrated right upper lobe pulmonary embolism. The alcohol level was 240 and he eventually became more responsive. He was referred to hospitalist service for admission given his pulmonary embolism in the setting of intoxication and complex cardiac history with recent syncope. He denies now any history of alcoholic seizures. He has been having these episodes of chest pain starting about 5-1/2 months ago and on 2 occasions including on Monday, they were severe enough to drop him to his knees. They are also associated with heart racing. He is followed up with [facility] and has had his ICD interrogated since the first episode and there was no concern for defibrillation events and when they do test the defibrillator, it does not feel like these sensations. He denies ever having a shock in his life. PAST MEDICAL HISTORY: Brugada syndrome, anxiety and depression, accelerating alcohol use. FAMILY MEDICAL HISTORY: His mother has history of Brugada syndrome; is alive at age 47. Father has history of hypertension; is alive at age 50. No siblings. No children. His paternal grandfather had history of blood clot in his lungs. Maternal grandmother had history of lung cancer. SOCIAL HISTORY: The patient is until recently a pack-a-day smoker until 2 to 3 weeks ago, but did have a few today. He has been smoking for about 5 years. Formerly, he smoked marijuana. He has had positive urine test for crystal meth back in February and did admit to ingestion at that time, but does not offer that today. Two months ago, he had been drinking 2 or 3 beers twice or so a week, but he has been under a lot of stress and has been drinking the aforementioned at least 13 to 20 beers a day. REVIEW OF SYSTEMS: Complete 14-point review of systems negative except as per HPI. He does have easy bleeding with flossing his teeth, which he largely avoids because of that. It took about 3 hours for a small shaving jimmy the other day to stop bleeding. PHYSICAL EXAMINATION GENERAL APPEARANCE: No acute distress. VITAL SIGNS: Temperature 97.1, initial heart rate was 100, satting ____% on 4 L nasal cannula, blood pressure 166/92. HEENT: Normocephalic, atraumatic. Pupils are equal, round, and reactive to light. Extraocular motions are intact. No scleral icterus. LUNGS: Clear to auscultation bilaterally with no wheezing, rales, or rhonchi. CARDIOVASCULAR: Regular rate and rhythm. No murmurs, rubs, or gallops ABDOMEN: Soft, nontender, nondistended. EXTREMITIES: Warm and well perfused. No peripheral edema. NEUROLOGIC: Alert and oriented x3. Little bit groggy appearing. SKIN: No lesions or rashes. DIAGNOSTIC STUDIES/LAB DATA: White count 8.4, hemoglobin 16.0, hematocrit 47, platelets 299, ESR 1. INR 0.96. AB.4, PCO2 of 39, PO2 of 154, bicarb 24. Sodium 139, potassium 3.7, chloride 108, carbon dioxide 23, BUN 10, creatinine 0.71, glucose 166, lactic acid 2.2, magnesium 2.1, calcium 8.6. Total bili 0.3 , AST 17, ALT 17, alk phos 80, ammonia 76. Troponin 0.00. BNP 10. TSH is 0.49. Albumin 4.6. Urinalysis: Specific gravity 1.003, 1+ blood, 1+ bacteria, 1+ glucose. Toxicology negative except for serum alcohol is 240. Imaging: CTA chest, abdomen, and pelvis with IV contrast demonstrated a filling defect in the right upper lobe pulmonary artery branch suspicious for pulmonary embolism. In the left lower lung, there is a 4- to 5-mm nodule, which has minimally increased in size. No aneurysm or dissection of the abdominal aorta. Within the body of pancreas, there is a 6-mm hypodense lesion. Differential considerations include pancreatic cyst, pseudocyst, IPMN, and cystic neoplasm. Similar finding is visualized on the prior study. There is an additional subcentimeter hypodense focus or a lesion in the region of the pancreatic head. All of this is likely contributing to volume averaging when correlated with a sagittal sequence. A nonemergent MRI of the abdomen with and without contrast is recommended. Chest x-ray: Formal read pending. No infiltrates or acute process per my read. He has an ICD in the left upper chest. EKG demonstrated sinus rhythm, Brugada pattern seen in V1 through V2, downsloping R wave, T-wave inversions, ST elevation in V3. He has had similar findings on previous EKGs. ASSESSMENT AND PLAN: José Molina is a 24-year-old male with past medical history of Brugada syndrome, anxiety and depression, increasing/accelerating alcohol use for the last 2 months, who drank at least a half liter of 80 proof whiskey and 12 beers and had an unresponsive episode in the field. No CPR was needed reportedly. He did get reportedly Narcan x1. Workup has found evidence of a pulmonary embolism in his right upper lobe, which may be explaining some of his chest discomfort and hemoptysis over the last 5 months or so. No clear inciting event. He is now waking up and he will be admitted for observation status while we monitor him while starting therapeutic anticoagulation, especially given his recent hemoptysis. He is status post 1 mg/kg Lovenox in the emergency room. I will transition him to Xarelto 15 mg twice a day, but then switch to 20 mg daily after 21 days. It was pressed upon him that he needs to cut way back on his alcohol use and he seems somewhat receptive to this idea. There is no clear inciting or provoking event and he will need to follow up with Hematology/Oncology as an outpatient to test for hypercoagulability workup. We will get started on the workup that can be done in the setting of both acute thrombosis and/or Lovenox administration, namely prothrombin gene mutation, factor V Leiden mutation, beta-2 glycoprotein IgM and IgG, and cardiolipin IgG and IgM. He states he wants to find a new heart doctor locally in the area. He says that he wants to be DNR and denies that he has had any recent mood disturbance. Mood is "mellow." Medical surrogate is his mother, Jonas Abbott. Continue on telemetry. Continue the heart-healthy diet. [id number]/[facility] #: [id number] [facility] CENTERKelsey
[2019-08-01 04:50] LABS: ABS Eosinophils 0.1 10^3/ul (0-0.6); ABS Lymphocytes 2.3 10^3/ul (1.0-4.8); ABS Monocytes 0.5 10^3/ul (0-0.8); Eosinophil % 0.8 %; Hematocrit 43 % (42-52); Hemoglobin 14.6 g/dL (14.0-18.0); Lymphocyte % 25.2 %; Mean Corpuscular HGB Conc 34 g/dL (31-36); Mean Corpuscular Hemoglobin 29 pg (27-31); Mean Corpuscular Volume 87 fL (80-94); Mean Platelet Volume 6.7 fL (7.4-10.4); Nucleated Red Blood Cells % 0.1; Platelet Count 289 10^3/uL (150-450); Red Blood Count 4.98 10^6 /uL (4.18-5.48); Red Cell Distribution Width 13 % (10-15)
[2019-08-01 05:05] LABS: BUN/Creatinine Ratio 12.6 (8-20); Calcium 8.6 mg/dL (8.6-10.3); EGFR African American 128.3 (>60); EGFR Non-African American 106.1 (>60); Potassium 4.1 mmol/L (3.5-5.0)
--- NOTE | 2019-08-01 07:41 | PN ---
Subjective Date of Service: 08/01/19 Interval History: HD 2 on 08/01 24 M with PMH significant for Brugada syndrome s/p ICD, alcohol use disorder and anxiety/depression(hx of suicide attempt) presented with recent increase in alcohol use, intermittent chest pain, hemoptysis and syncope. Found to have pulmonary embolism and alcohol intoxication. No acute overnight events vitals stable Patient seen and examined at bedside. Patient states he has chest pain; epigastric with no radiation. Has some nausea but no vomiting. Patient counselled about drinking habits and informed about ongoing medical problems. Objective Active Medications: Melatonin (Melatonin) 3 mg PO BEDTIME [facility] Last Admin: 08/01/19 03:07 Dose: 3 mg Rivaroxaban (Xarelto(*)) 15 mg PO BID [facility] Vital Signs - 8 hr 07/31/19 07/31/19 08/01/19 23:42 23:43 00:00 Temperature 98.2 F Pulse Rate 84 82 Respiratory 16 21 Rate Blood Pressure 136/89 (mmHg) O2 Sat by Pulse 98 97 Oximetry 08/01/19 08/01/19 08/01/19 00:13 00:43 01:00 Temperature Pulse Rate 83 88 79 Respiratory 21 18 16 Rate Blood Pressure 167/88 130/74 (mmHg) O2 Sat by Pulse 97 96 96 Oximetry 08/01/19 08/01/19 08/01/19 01:13 01:17 01:36 Temperature 98.8 F 98.8 F Pulse Rate 80 69 Respiratory 15 13 Rate Blood Pressure 145/91 145/91 (mmHg) O2 Sat by Pulse 97 98 Oximetry 08/01/19 08/01/19 01:50 05:00 Temperature 97.5 F 97.8 F Pulse Rate 75 80 Respiratory 18 20 Rate Blood Pressure 160/86 132/88 (mmHg) O2 Sat by Pulse 99 100 Oximetry Oxygen Devices in Use Now: None Exam: Patient lying on a bed with no acute distress HEENT: Normocephalic and atraumatic. PERRLA Lungs: clear with no sounds Heart: S1/S2 heard with no murmur abdomen: soft nondistended and nontender. Normal BS heard Extremities: No swelling, cyanosis and clubbing Neuro: Alert, oriented and coperative Result Diagrams: 08/01/19 04:33 08/01/19 04:33 Assess/Plan/Problems-Billing Assessment: 24 M with PMH significant for Brugada syndrome s/p ICD, alcohol use disorder and anxiety/depression(hx of suicide attempt) presented with recent increase in alcohol use, intermittent chest pain, hemoptysis and syncope. Found to have pulmonary embolism and alcohol intoxication.On xarelto and WAM protocol. - Patient Problems (1) Pulmonary embolism Current Visit: Yes Status: Acute Code(s): I26.99 - OTHER PULMONARY EMBOLISM WITHOUT ACUTE COR PULMONALE SNOMED Code(s): 76583922 Comment: -Patient has chest pain and hemoptysis -He has been having sx for 5 days. -He denies fever. -CTA shows acute PE- unprovoked -will do venous doppler B/L LE. -start on xarelto 15 BID for 21 days(started on 08/01) and then 20 mg daily (2) Syncope Current Visit: Yes Status: Acute Code(s): R55 - SYNCOPE AND COLLAPSE SNOMED Code(s): 885154042 Comment: -unclear; patient was intoxicated and became unresponsive -although had intermittent chest pain but no palpitation -most lilkely alcohol-induced -will monitor in tele -echo-shows EF of 60-65%. Normal wall motion. -talked to Dr. Cruz-will see the patient. (3) Alcohol intoxication Current Visit: Yes Status: Acute Comment: -increase in alcohol intake for last 2-3 month -usually drinks 12-20 beers per day- as he has increased stress. -last drink yesterday-12 beers and 1/2 L of whiskey -serum alcohol in 200's -should watch for withdrawal- on WAM protocol. -will do psych consult as he was previously hospitalized for suicide attempt (4) Brugada syndrome Current Visit: No Status: Acute Code(s): I49.8 - OTHER SPECIFIED CARDIAC ARRHYTHMIAS SNOMED Code(s): 739733343 Comment: -Pat has history of brugada syndrome-now on ICD -has family history as well; on mother-No siblings -will do ICD interrogation (5) Depression Current Visit: No Status: Acute Priority: High Code(s): F32.9 - MAJOR DEPRESSIVE DISORDER, SINGLE EPISODE, UNSPECIFIED SNOMED Code(s): 10568610 Comment: -has history of depression and suicide attempt in the past -ther was also question of bipolar -given his increase in drinking habit we will ask psych to evaluate him -Iseally he should be on medication-will wait for psych recommendation (6) Substance use disorder Current Visit: Yes Status: Acute Code(s): F19.90 - OTHER PSYCHOACTIVE SUBSTANCE USE, UNSPECIFIED, UNCOMPLICATED SNOMED Code(s): 299939588 Comment: -used crystal meth in past; denies at present -smokes around a PPD -increasing alcohol intake -counselling done- patient should f/u with PCP (7) DVT prophylaxis Current Visit: No Status: Acute Code(s): Z29.9 - ENCOUNTER FOR PROPHYLACTIC MEASURES, UNSPECIFIED SNOMED Code(s): 418488182 Comment: -on xarelto (8) Full code status Current Visit: No Status: Acute Code(s): Z78.9 - OTHER SPECIFIED HEALTH STATUS SNOMED Code(s): 592120859 Status and Disposition: Inpatient Attending: Kierra Reina Attestation Documenting Resident: Mickey Dawkins Supervising Physician: Kierra Reina Attestation: This service has been performed in part by a resident under the direction of a teaching physician.I, Kierra Reina, performed the service, or was physically present during the critical, or rubin portions of the service, furnished by the resident. I participated in the management of the patient.
[2019-08-01] MEDS ORDERED: LORazepam INJ* 2 MG/ML 1 ML VIAL IV PUSH PRN (07:47)
[2019-08-01] MEDS ORDERED: Lorazepam PYXIS KEY PRN (07:47)
[2019-08-01] MEDS: Rivaroxaban TAB(*) 15 MG PO SCH ×2 (10:51→21:01)
[2019-08-01] MEDS ORDERED: Acetaminophen TAB* 325 MG PO PRN (11:43)
--- NOTE | 2019-08-01 12:22 | ECHO ---
*[facility]* [place] [address] Fax #: [phone] Transthoracic Echocardiogram Patient: José Molina : 1995 Study Date: 08/01/2019 Age: 24 Gender: M HR: 65 bpm Height: 64 in /162.6 cm BSA: 1.76 m^2 Weight: 154.7 lb /70.3 kg BMI: 26.6 kg/m^2 *Isolation Washer: * Catia Krueger [facility] *Referring Physician: * Mickey Dawkins *Reading Physician: * Gerson Cruz MD Indications: Syncope. History: Brugada syndrome. Risk factors: Current tobacco use. Recent heavy ETOH use. Labs, prior tests, procedures, and surgery: ICD system implantation. Conclusions Summary: - Left ventricle: The cavity size is normal. Wall thickness is normal. Systolic function is normal. The estimated ejection fraction is 60-65%. Wall motion is normal; there are no regional wall motion abnormalities. - Right ventricle: The cavity size is normal. Pacer wire noted in the right ventricle. Systolic function is normal. Systolic pressure is within the normal range. - Pericardium, extracardiac: There is no significant pericardial effusion. - No significant valvular abnormalities noted. Recommendations: Compared to prior study from 12/2017, findings are similar. Study data: Transthoracic echocardiogram. Procedure: Transthoracic echocardiography was performed. Image quality was good. Complete 2D, spectral Doppler, and color flow Doppler. Location: Bedside. Patient status: Inpatient. Patient room number: 443-02. Rhythm: Normal sinus rhythm. Findings Left ventricle: The cavity size is normal. Wall thickness is normal. Systolic function is normal. The estimated ejection fraction is 60-65%. Wall motion is normal; there are no regional wall motion abnormalities. Left ventricular diastolic function parameters are normal. Right ventricle: The cavity size is normal. Pacer wire noted in the right ventricle. Systolic function is normal. Systolic pressure is within the normal range. Left atrium: The atrium is normal in size. Right atrium: The atrium is normal in size. Mitral valve: The leaflets are normal thickness. There is no evidence of stenosis. There is trace regurgitation. Aortic valve: The valve is trileaflet. The leaflets are normal thickness. There is no evidence of stenosis. There is no significant regurgitation. Tricuspid valve: The leaflets are normal thickness. There is no evidence of stenosis. There is trace regurgitation. Pulmonic valve: The leaflets are normal thickness. There is no evidence of stenosis. There is trace regurgitation. Aorta: Aortic root: The aortic root is appears normal. Ascending aorta: The ascending aorta is appears normal. Aortic arch: The aortic arch is appears normal. Pericardium: There is no significant pericardial effusion. Pulmonary arteries: The main pulmonary artery is normal-sized. Systolic pressure is within the normal range. Systemic veins: Inferior vena cava: The vessel is normal in size. There is (>= 50%) respiratory change in the IVC dimension. Measurements Left ventricle Value Ref Aortic valve Value Ref YORDAN, LAX (L) 3.9 cm 4.2 - 5.8 Kyler diam, ED 2.1 cm ----- ESD, LAX 2.8 cm 2.5 - 4.0 Peak v, S 1.27 m/sec ----- FS, LAX 27 % 25 - 43 VTI, S 25.5 cm ----- PW, ED, LAX (H) 1.1 cm 0.6 - 1.0 Mean grad, S 4.0 mm Hg ----- FS 27 % 25 - 43 Peak grad, S 6.0 mm Hg ----- Mid-wall FS 11 % LVOT/AV, VTI ratio 0.86 ----- PW, ED (H) 1.1 cm 0.6 - 1.0 E', lat kyler, TDI 22.4 cm/sec >=10.0 Mitral valve Value Ref E/e', lat kyler, 4 Peak E 0.87 m/sec ----- TDI Peak A 0.53 m/sec ----- E', med kyler, TDI 10.3 cm/sec >=7.0 Decel time 208 ms --- -- E/e', med kyler, 8 Peak grad, D 3.0 mm Hg ----- TDI Peak E/A ratio 1.6 ----- E', avg, TDI 16.4 cm/sec E/e', avg, TDI 5 <=14 Pulmonic valve Value Ref Peak v, S 1.04 m/sec ----- LVOT Value Ref Peak grad, S 4.0 mm Hg ----- Peak bridger, S 1.16 m/sec VTI, S 22.0 cm Tricuspid valve Value Ref Peak grad, S 5 mm Hg TR peak v 2.2 m/sec <=2.8 Mean grad, S 3 mm Hg Peak RV-RA grad, S 19 mm Hg ----- Ventricular septum Value Ref Aortic root Value Ref IVS, ED 1.0 cm 0.6 - 1.0 Root diam 2.8 cm <3.4 Right ventricle Value Ref Ascending aorta Value Ref YORDAN, LAX 2.3 cm AAo AP diam, S 2.7 cm ----- YORDAN minor ax, A4C 3.3 cm 1.9 - 3.5 mid Aortic arch Value Ref Pressure, S 22 mm Hg Arch diam 2.0 cm ----- Left atrium Value Ref Decending aorta Value Ref AP dim, ES (L) 2.70 cm 3.00 - Ruben peak bridger 0.86 m/sec ----- 4.00 ML dim, A4C 3.2 cm Pulmonary artery Value Ref SI dim, A4C 3.8 cm Pressure, S 18.0 mm Hg ----- Vol/bsa, ES, 1-p (L) 9 ml/m^2 12 - 37 A4C Inferior vena cava Value Ref Vol/bsa, ES, A/L 17 ml/m^2 16 - 34 Diam 2.0 cm ----- Right atrium Value Ref SI dim, ES 3.5 cm 3.4 - 5.3 ML dim, ES, A4C 3.8 cm 2.6 - 4.4 Estimated RAP 3 mm Hg Legend: (L) and (H) scarlett values outside specified reference range. Prepared and electronically signed by Gerson Cruz MD 08/01/2019 12:22
--- NOTE | 2019-08-01 13:32 | PROCNOTE ---
Cardiology Procedure Note 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 No arrhythmias since last interrogation 05/03/2019
--- NOTE | 2019-08-01 14:01 | CONSULT ---
Subjective Date of Service: 08/01/19 Interval History: 2 Admission Date: 08/01/19 Consult date 08/01/2019 Provider: Hospitalist service PRIMARY CARE PROVIDERS: Dr. Chavez and Candi Ye, OPERATIONS ADMINISTRATOR at [facility]. CHIEF COMPLAINT: Chest pain, syncope hemoptysis intermittent chest pains. HISTORY OF PRESENT ILLNESS: José Molina is a 24-year-old man with a history as below. His mother Ashley is at bedside. He was admitted with chest pain across the entire chest, hemoptysis and syncope in the setting of very heavy alcohol use. He was found with a suspicion of right upper lobe branch PE. He does not describe pain in that particular region. The pain is widespread throughout the chest and has respiratory variability to the pain not outright pleuritic. His alcohol level was 240 and glucose 67. He Pmhx: Syncope with brugada EKG pattern s/p single chamber ICD 2013 no ICD therapies delivered per his account. Alcoholism Anxiety/depression FAMILY MEDICAL HISTORY: His mother has history of Brugada scarrier; is alive at age 47. Father has history of hypertension; is alive at age 50. No siblings. No children. His paternal grandfather had history of blood clot in his lungs. Maternal grandmother had history of lung cancer. From HPI" SOCIAL HISTORY: The patient is until recently a pack-a-day smoker until 2 to 3 weeks ago, but did have a few today. He has been smoking for about 5 years. Formerly, he smoked marijuana. He has had positive urine test for crystal meth back in February and did admit to ingestion at that time, but does not offer that today. Two months ago, he had been drinking 2 or 3 beers twice or so a week, but he has been under a lot of stress and has been drinking the aforementioned at least 13 to 20 beers a day." Medications Active Medications: Acetaminophen (Tylenol Tab*) 650 mg PO Q6H PRN PRN Reason: PAIN - MILD Lorazepam (Ativan Inj*) 0 mg IV PUSH Q4H PRN; Protocol PRN Reason: ANXIETY Melatonin (Melatonin) 3 mg PO BEDTIME [facility] Last Admin: 08/01/19 03:07 Dose: 3 mg Miscellaneous (Ativan Pyxis Rebollar) 1 ea N/A .ATIVAN IV REBOLLAR PRN PRN Reason: PYXIS REBOLLAR Quetiapine Fumarate (Seroquel Tab*) 100 mg PO BEDTIME [facility] Rivaroxaban (Xarelto(*)) 15 mg PO BID [facility] Last Admin: 08/01/19 10:51 Dose: 15 mg Home Medications: NK [No Home Medications Reported] 07/31/19 [History Confirmed 07/31/19] Review of Systems - Measurements Intake and Output: Intake and Output Last 24 Hours 07/30/19 07/31/19 08/01/19 08/02/19 06:59 06:59 06:59 06:59 Intake Total 1240 950 Balance 1240 950 Weight 155 lb 6.4 oz Intake: IV Fluids 1000 Oral 240 950 Other: Estimated Void Medium # Voids 1 - Review of Systems Constitutional Symptoms: Negative: Weight Gain, Weight Loss, Fever Dermatology: Negative: Rash, Skin Lesions HEENT: Negative: Change in Hearing, Vertigo Eyes: Negative: Change in Vision, Double Vision Thyroid: Negative: Cold Intolerance, Heat Intolerance, Palpitations, Weight Loss, Weight Gain Pulmonary: Positive: Cough, Hemoptysis Negative: Sputum, Wheezing, Respiratory Distress, Shortness of Breath, COPD Cardiology: Positive: Chest Pain, Syncope Negative: Shortness of Breath, Palpitations, Swelling of Ankles, Peripheral Vascular Dis, Edema, Faintness, Claudication, Paroxysmal Nocturnal Dyspnea, Orthopnea Gastroenterology: Negative: Vomiting, Anorexia, Blood in Stools, Haematemesis, Melena Genital - Urinary: Negative: Dysuria, Hematuria, Polyuria, Nocturia, Other Musculoskeletal: Negative: Joint Pain, Joint Stiffness Endocrinology: Negative: Polydipsia, Polyuria Hematologic/Lymphatic: Negative: Use of Anticoagulant, Use of Antiplatelet Drugs Neurology: Negative: Hx of Stroke\\TIA, Hx Seizures Psychiatry: Negative: Unusual Anxiety, Suicidal Ideation Allergic/Immunologic: Negative: Hx HIV, Immunocompromise Review of Systems Statement: All other review of systems negative, unless stated above. Objective Vital Signs: Temp Pulse Resp BP Pulse Ox 98.1 F 75 16 151/86 99 08/01/19 07:15 08/01/19 07:15 08/01/19 07:15 08/01/19 07:15 08/01/19 07:15 Oxygen Devices in Use Now: None Appearance: nad, pleasant Ears/Nose/Mouth/Throat: Clear Oropharnyx, Mucous Membranes Moist Neck: NL Appearance and Movements; NL JVP, Trachea Midline Respiratory: Symmetrical Chest Expansion and Respiratory Effort, Clear to Auscultation Cardiovascular: NL Sounds; No Murmurs; No JVD, RRR, No Edema, - - left upper pectoral icd site intact Extremities: No Edema Skin: No Rash or Ulcers Neurological: Alert and Oriented x 3 Laboratory Results: 08/01/19 04:33 08/01/19 04:33 INR (Anticoag Therapy) 0.96 (0.82-1.09) 07/31/19 20: APTT 33.9 seconds (26.0-38.0) 07/31/19 20: Total Bilirubin 0.30 mg/dL (0.2-1.0) 07/31/19 20: AST 17 U/L (13-39) 07/31/19 20: ALT 17 U/L (7-52) 07/31/19 20: Alkaline Phosphatase 80 U/L (34-104) 07/31/19 20: B-Natriuretic Peptide 10 pg/mL (<=100) 07/31/19 20: Total Protein 7.2 g/dL (6.4-8.9) 07/31/19 20: Albumin 4.6 g/dL (3.2-5.2) 07/31/19 20: Globulin 2.6 g/dL (2-4) 07/31/19 20: Albumin/Globulin Ratio 1.8 (1-3) 07/31/19 20: TSH 0.49 mcIU/mL (0.34-5.60) 07/31/19 20:19 07/31/19 08/01/19 08/01/19 20: 04:33 11:10 Troponin I 0.00 0.00 0.00 Diagnostic Imaging: Transthoracic Echocardiogram Study Date: 08/01/2019 Summary: - Left ventricle: The cavity size is normal. Wall thickness is normal. Systolic function is normal. The estimated ejection fraction is 60-65%. Wall motion is normal; there are no regional wall motion abnormalities. - Right ventricle: The cavity size is normal. Pacer wire noted in the right ventricle. Systolic function is normal. Systolic pressure is within the normal range. - Pericardium, extracardiac: There is no significant pericardial effusion. - No significant valvular abnormalities noted. Recommendations: Compared to prior study from 12/2017, findings are similar. Exam: CT Angiography A Exam date and time: 07/31/2019 10:34 PM IMPRESSION: 1. A filling defect is identified within a pulmonary arterial branch to the right upper lobe, suspicious for pulmonary embolism. EKG Data: ekg 11/26/2013: NSR, brugada pattern v1/v2 ekg 07/31/2019 NSr, artifact extensive, rsr' v1/ 2 less class for brugada device interrogation this admission: Normal Assessment/Plan It does not appear that any of patients symptom prompting admission are directly cardiac related. His reported pulmonary embolism and alcoholism should be further evaluated and treated as per Primary service. He requests a transfer to our device clinic from [facility] and this will be arranged as an outpatient.
--- NOTE | 2019-08-01 14:13 | CONS ---
CONSULTATION REPORT: DATE OF CONSULT: 08/01/19 ATTENDING PHYSICIAN: Dr. Mickey Dawkins. REASON FOR CONSULT: The patient with untreated bipolar, abusing alcohol. SUBJECTIVE HISTORY: The patient is a 24-year-old single white male with a putative history of bipolar disorder as well as alcohol and amphetamine abuse, who is currently hospitalized on the [address] [place] [address] after presenting to the hospital with chest pain and subsequently being diagnosed with pulmonary embolus. The patient divulged a history of bipolar disorder to the primary team and was actually hospitalized for suicide attempt in early February 2019; however, he is telling us that he does not take any medications and never followed up with either substance abuse or mental health services. Also concerning is that he consumes close to 20 beers a day and arrived in the emergency room intoxicated with a blood alcohol content of 240. The primary team asked Psychiatry to assess him to see if his bipolar condition required treatment and to further see if there was anything we could do related to his substance misuse. Upon evaluation on the 4th floor, I note that I recognized José from his brief hospitalization in February. At that time, he had recently lost a grandparent and had become distressed and overdosed on olanzapine pills, which have been prescribed by his family practitioner. He was subsequently discovered to have a urine drug screen that was positive for methamphetamine and he acknowledged recent abuse of that substance. Today, he states that he has not used any methamphetamine since then, but he acknowledges drinking large amounts of both beer and whiskey daily. Although, he does state that now that he is on a blood thinner, he recognizes that he will have to cut down significantly. The patient's mother whose name is Ashley Montana is present and sitting next to him. She is supportive and notes that the patient has significant anxiety and would perhaps benefit from some medication for this. José agrees that anxiety is an issue, although he denies any recent symptoms of depressive illness or ailyn. 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 Again, he is willing to consider reducing this given the fact that he is now placed on a blood thinner for his pulmonary embolus. The patient denies suicidal or homicidal ideations. He denies the need for followup at [facility] or for substance abuse services in the community. PREVIOUS PSYCHIATRIC HISTORY: The patient has a prior history of diagnoses for ADHD, learning disorder, and bipolar disorder. He was hospitalized psychiatrically twice at [facility] in 2014 and 2015 following suicide attempts. He was also hospitalized here in February 2019 for an overdose on olanzapine. SUBSTANCE ABUSE HISTORY: The patient states that he started drinking very early in life. In 2013, he went to a rehab in [place] followed by a [facility] [place]. He essentially drinks alcohol every day and occasionally also uses cannabis. Last use of crystal meth apparently in January 2019. PAST MEDICAL HISTORY: Remarkable for Brugada syndrome, status post ICD insertion in 2013. He also has a newly discovered pulmonary embolus. CURRENT MEDICATIONS: 1. He was just put on Xarelto 15 mg twice daily. 2. He takes melatonin 3 mg at night for sleep. ALLERGIES: He has no known drug allergies. FAMILY HISTORY: There is a significant family history of alcoholism in both sides of the family. His father is diagnosed with PTSD from combat service and has alcohol use disorder. His mother takes Lexapro for depression and anxiety. There is no known history of completed suicides in the family. SOCIAL HISTORY: The patient was born in [place], [place]. His father still lives there. His mother lives in [place]. He has an older maternal half- sister in [place] and 2 younger paternal half-siblings. He is a high school graduate and went to vocational school for maintenance. 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 He is living in apartment with his girlfriend also in [place], [place]. He identifies as heterosexual. MENTAL STATUS EXAM: The patient is a young white male with reddish hair. He has got some crude tattoos on his upper arms, lying in bed propped up in pillows , wearing patient gown. He is calm, cooperative, makes fairly good eye contact. Speech has a normal rate, tone, and volume. Mood appears to be euthymic with full affect. Thought process is linear and goal directed. Thought content is significant for his desire to conclude his treatment and be discharged. He is denying suicidal or homicidal ideations. He denies auditory or visual hallucinations. Insight and judgment are fair given his willingness to take some medication for anxiety and to reduce his alcohol consumption. Cognitively, he is awake and alert with what would appear to be somewhat low average intellect by virtue of special education history. DIAGNOSES: Donaldson I: Alcohol use disorder; anxiety disorder, not otherwise specified; bipolar disorder by history. Donaldson II: Deferred. IMPRESSION: The patient is a 24-year-old single white male with a history of affective problems, suicidal overdoses, alleged bipolar disorder, as well as alcohol and amphetamine use disorders, who arrives to the hospital with chest pain and is subsequently diagnosed with a pulmonary embolus. The primary team is concerned about his drinking and his lack of outpatient followup for his affective problems. At this time, he is acknowledging problems with anxiety, although he denies depression or ailyn. After discussing options, he agrees to a trial of low- dose quetiapine. He is declining outpatient mental health or substance abuse followup, but is willing to see his primary care provider after discharge. RECOMMENDATIONS TO PRIMARY TEAM: Psychiatry recommends initiation of quetiapine 100 mg p.o. q.h.s. The patient is neither a danger to himself nor others and does not require inpatient psychiatric treatment at this time. Followup can be with his primary care provider at the [facility] in [place], [place]. Psychiatry is appreciative of the consult and is signing off for now; however, we can be reconsulted in the event of any significant changes in the patient's presentation. [id number]/[facility] #: [id number] RAMESH
[2019-08-01] MEDS ORDERED: QUEtiapine TAB* 100 MG PO SCH (21:00)
[2019-08-02 06:03] LABS: ABS Eosinophils 0.1 10^3/ul (0-0.6); ABS Monocytes 0.5 10^3/ul (0-0.8); ABS Neutrophils 3.8 10^3/ul (1.5-7.7); Eosinophil % 1.2 %; Hematocrit 46 % (42-52); Hemoglobin 15.4 g/dL (14.0-18.0); Lymphocyte % 30.6 %; Mean Corpuscular HGB Conc 33 g/dL (31-36); Mean Corpuscular Hemoglobin 29 pg (27-31); Mean Corpuscular Volume 87 fL (80-94); Mean Platelet Volume 6.8 fL (7.4-10.4); Nucleated Red Blood Cells % 0.1; Platelet Count 259 10^3/uL (150-450); Red Blood Count 5.27 10^6 /uL (4.18-5.48); Red Cell Distribution Width 13 % (10-15); White Blood Count 6.4 10^3/uL (3.5-10.8)
[2019-08-02 06:20] LABS: BUN/Creatinine Ratio 15.1 (8-20); Calcium 8.9 mg/dL (8.6-10.3); EGFR African American 130.1 (>60); EGFR Non-African American 107.5 (>60); Potassium 4.1 mmol/L (3.5-5.0)
[2019-08-02] MEDS ORDERED: Calcium Carbonate CHEW TAB* 500 MG (TUMS) PO PRN (06:59)
--- NOTE | 2019-08-02 07:16 | PN ---
Subjective Date of Service: 08/02/19 Interval History: HD 3 on 08/02 24 M with PMH significant for Brugada syndrome s/p ICD, alcohol use disorder and anxiety/depression(hx of suicide attempt) presented with recent increase in alcohol use, intermittent chest pain, hemoptysis and syncope. Found to have pulmonary embolism and alcohol intoxication. No acute overnight events vitals stable patient seen and examined at bedsite. Patient states he is feeling tired. Otherwise no sx. has appt with his PCP on Monday at 1:20pm Objective Active Medications: Acetaminophen (Tylenol Tab*) 650 mg PO Q6H PRN PRN Reason: PAIN - MILD Calcium Carbonate (Tums*) 500 mg PO Q6H PRN PRN Reason: DYSPEPSIA Lorazepam (Ativan Inj*) 0 mg IV PUSH Q4H PRN; Protocol PRN Reason: ANXIETY Melatonin (Melatonin) 3 mg PO BEDTIME [facility] Last Admin: 08/01/19 21:02 Dose: 3 mg Miscellaneous (Ativan Pyxis Rebollar) 1 ea N/A .ATIVAN IV REBOLLAR PRN PRN Reason: PYXIS REBOLLAR Quetiapine Fumarate (Seroquel Tab*) 100 mg PO BEDTIME [facility] Last Admin: 08/01/19 21:01 Dose: 100 mg Rivaroxaban (Xarelto(*)) 15 mg PO BID [facility] Last Admin: 08/01/19 21:01 Dose: 15 mg Vital Signs - 8 hr 08/01/19 08/02/19 23:46 03:28 Temperature 97.7 F 97.4 F Pulse Rate 72 57 Respiratory 16 16 Rate Blood Pressure 115/55 144/73 (mmHg) O2 Sat by Pulse 99 100 Oximetry Oxygen Devices in Use Now: None Exam: Patient lying on a bed with no acute distress HEENT: Normocephalic and atraumatic. PERRLA Lungs: clear with no sounds Heart: S1/S2 heard with no murmur abdomen: soft nondistended and nontender. Normal BS heard Extremities: No swelling, cyanosis and clubbing Neuro: Alert, oriented and coperative Result Diagrams: 08/02/19 05:47 08/02/19 05:47 Assess/Plan/Problems-Billing Assessment: 24 M with PMH significant for Brugada syndrome s/p ICD, alcohol use disorder and anxiety/depression(hx of suicide attempt) presented with recent increase in alcohol use, intermittent chest pain, hemoptysis and syncope. Found to have pulmonary embolism and alcohol intoxication.On xarelto and WAM protocol. - Patient Problems (1) Pulmonary embolism Current Visit: Yes Status: Acute Code(s): I26.99 - OTHER PULMONARY EMBOLISM WITHOUT ACUTE COR PULMONALE SNOMED Code(s): 87121313 Comment: -Patient has chest pain and hemoptysis -He has been having sx for 5 days. -He denies fever. -CTA shows acute PE- unprovoked -venous doppler B/L LE-No DVT -start on xarelto 15 BID for 21 days(started on 08/01) and then 20 mg daily (2) Syncope Current Visit: Yes Status: Acute Code(s): R55 - SYNCOPE AND COLLAPSE SNOMED Code(s): 084898536 Comment: -unclear; patient was intoxicated and became unresponsive -although had intermittent chest pain but no palpitation -most lilkely alcohol-induced -No events on tele -ICD interrogation- No firing -Appreciate cardio input -echo-shows EF of 60-65%. Normal wall motion. -talked to Dr. Cruz-will see the patient. (3) Alcohol intoxication Current Visit: Yes Status: Acute Comment: -increase in alcohol intake for last 2-3 month -usually drinks 12-20 beers per day- as he has increased stress. -last drink yesterday-12 beers and 1/2 L of whiskey -serum alcohol in 200's -not scoring on wam -Appreciate psych input- staretd on seroquel (4) Brugada syndrome Current Visit: No Status: Acute Code(s): I49.8 - OTHER SPECIFIED CARDIAC ARRHYTHMIAS SNOMED Code(s): 891403876 Comment: -Pat has history of brugada syndrome-now on ICD -has family history as well; on mother-No siblings -ICD interrogation done- NO firing (5) Depression Current Visit: No Status: Acute Priority: High Code(s): F32.9 - MAJOR DEPRESSIVE DISORDER, SINGLE EPISODE, UNSPECIFIED SNOMED Code(s): 11092483 Comment: -has history of depression and suicide attempt in the past -ther was also question of bipolar -appreciate psych input -started on seroquel (6) Substance use disorder Current Visit: Yes Status: Acute Code(s): F19.90 - OTHER PSYCHOACTIVE SUBSTANCE USE, UNSPECIFIED, UNCOMPLICATED SNOMED Code(s): 867787746 Comment: -used crystal meth in past; denies at present -smokes around a PPD -increasing alcohol intake -counselling done- patient should f/u with PCP (7) DVT prophylaxis Current Visit: No Status: Acute Code(s): Z29.9 - ENCOUNTER FOR PROPHYLACTIC MEASURES, UNSPECIFIED SNOMED Code(s): 338432340 Comment: -on xarelto (8) Full code status Current Visit: No Status: Acute Code(s): Z78.9 - OTHER SPECIFIED HEALTH STATUS SNOMED Code(s): 503494173 Status and Disposition: Inpatient Attending: Kierra Reina Attestation Documenting Resident: Mickey Dawkins Supervising Physician: Kierra Reina Attestation: This service has been performed in part by a resident under the direction of a teaching physician.I, Kierra Reina, performed the service, or was physically present during the critical, or rebollar portions of the service, furnished by the resident. I participated in the management of the patient.
[2019-08-02] MEDS: Rivaroxaban TAB(*) 15 MG PO SCH (11:17)
--- NOTE | 2019-08-02 11:36 | DS ---
Resident Discharge Summary Discharge Summary: Date of Admission: 08/01/19 Date of Discharge: 08/02/2019 Admitting MD: Shashank Adhikari MD Attending MD: Kierra Reina MD Primary Care Physician: Dr. Chavez and Candi Ye NP at [facility] Medication Medication at Discharge Medication Instructions Recorded Confirmed Type Acetaminophen TAB* [Tylenol TAB*] 650 mg PO Q6H PRN #30 tab 08/02/19 Rx Calcium Carbonate CHEW TAB* [Tums*] 500 mg PO Q6H PRN #30 tab.chew 08/02/19 Rx QUEtiapine TAB* [Seroquel 100 MG *] 100 mg PO BEDTIME #30 tab 08/02/19 Rx Rivaroxaban TAB(*) [Xarelto 15 15 mg PO BID #40 tab 08/02/19 Rx mg(*)] Disposition: Home Condition: Stable Primary Diagnosis: 1. Acute Pulmonary Embolism 2. Alcohol Intoxication 3. Syncope Secondary Diagnosis: 1. Brugada Syndrome s/p ICD 2. Anxiety and Depression Diagnostic Imagin. Brain CT(07/31): No acute intracranial abnormality. Cystic collection of fluid within subcutaneous tissues of the left upper neck posteriorly measuring 2.1x1.4 cm. 2. Chest X-ray: No evidence of active intracranial abnormality. 3. Chest/Abdomen/Pelvis CTA: Pulmonary embolism within pulmonary arterial branch to right upper lobe. 4-5 mm nodule within left lower lobe. Multiple hypodense lesion on pancreas. 4.Venous Doppler of lower extremities: No DVT. Pertinent Laboratory Results: 1. Lactic acid: 2.2, 1.1 2. Serum Alcohol: 240 3. Troponin: 0.00 Hospital Course: This is a pleasant 24 M with PMH significant for Brugada Syndrome s/p ICD, Anxiety/Depression and Alcohol use disorder presented with complaint of syncope after ingestion of 12 beers and 1/2L of whiskey. Although he was also complaining of intermittent chest pain and Hemoptysis for few days. For details , please review H and P dictated by Dr. Adhikari. But in short, he was found to have acute pulmonary embolism and high serum alcohol level. His hospital course according to problem are: 1. Acute Pulmonary Embolism: This could be most likely cause of chest pain and hemoptysis. CTA was positive and he was started on Xarelto 15 mg BID for 21 days followed by xarelto 20 mg daily. Venous doppler was done but was negative for DVT. 2. Alcohol intoxication: Patient drinking habit has increased recently for 2-3 months. He is normally drinking 13-20 beers everyday after work. So, he was high risk for withdrawal. So he was monitored for 36 hours with [facility] protocol and he did not score high. But given his drinking habit and past history of substance use, depression and suicide attempts Psychiatry consultation was done and he was started on Seroquel 100 mg on their recommendation. 3. Syncope: This could be from alcohol intoxication which was causing decreased responsiveness. But given his history of Brugada syndrome, Cardiology was consulted. he was monitored on telemetry with no events. Echo was normal and ICD interrogation revealed no events. CONSULTATION DURING THIS STAY: Cardiology and Psychiatry On the day of discharge, patient was asymptomatic, vitals were stable, ambulating well and tolerating PO diet. Follow Up Instructions: THINGS TO FOLLOW UP STATUS POST DISCHARGE 1. He should follow up with PCP for pulmonary embolism and needs prescription of xarelto after 20 days. He can also be referred to Hem/Onc if reasonable. 2. He is started on new anti-psychotic medication please follow up on that. 3. His CT scan showed multiple fluid collection on pancreas which should be followed up with MRI as outpatient. 4. He has pulmonary nodules so please follow up that as well. In case of an emergency or after clinic hours, please go to your nearest Emergency Department. You may also call the [facility] pulp operator at . Attestation Documenting Resident: Mickey Dawkins Supervising Physician: Kierra Reina Attestation: This service has been performed in part by a resident under the direction of a teaching physician.I, Kierra Reina, performed the service, or was physically present during the critical, or rubin portions of the service, furnished by the resident. I participated in the management of the patient.
[2019-08-02 13:28] VITALS: BP 142/82
[2019-08-02 18:15] LABS: Phospholipid Ab IgG < 9.4 GPL; Phospholipid Ab IgM, S < 9.4 MPL
[2019-08-02 19:27] LABS: Beta 2 Glycoprotein IgG <9.4 U/mL
== END 2019-08-02 16:00 | disposition home or self-care (01) ==
LOC: ED 19:37 → MEDTELE 08-01 00:21
PROVIDERS: ADMIT Internal Medicine; ATTEND Internal Medicine
DX: I26.99 Other pulmonary embolism without acute cor pulmonale (principal); F10.129 Alcohol abuse with intoxication, unspecified; R55 Syncope and collapse; I49.8 Other specified cardiac arrhythmias; R04.2 Hemoptysis; F41.9 Anxiety disorder, unspecified; F32.9 Major depressive disorder, single episode, unspecified; F17.210 Nicotine dependence, cigarettes, uncomplicated; Z95.0 Presence of cardiac pacemaker; R94.31 Abnormal electrocardiogram [ECG] [EKG]; Z79.899 Other long term (current) drug therapy
CPT/HCPCS: 36415; 70450; 71045; 71275; 74177; 80048; 80053; 80307; 80320; 81003; 81015; 81240; 81241; 82140; 82803; 83605; 83735; 83880; 84443; 84484; 85025; 85610; 85652; 85730; 86146; 86147; 87086; 93005; 93306; 93970; 96372; 99285; A9270-GY; G0378; G0480; J1650; Q9967

== ENCOUNTER 2019-09-11 11:19 | Observation (INO) | payer MEDICAID ==
[2019-09-11] MEDS ORDERED: NS 0.9% 1000 ML** 1,000 ML IV ONE (11:49)
[2019-09-11] MEDS ORDERED: Pantoprazole IV* 40 MG IV ONE (11:50)
--- NOTE | 2019-09-11 12:00 | ED ---
GI/ HPI - HPI Summary HPI Summary: Pt. is a 24 y.o male who presents to the ER for hematemesis x 4 that started last night. Pt. notes hx of alcoholism and has been trying to cut back. Pt. states he has cut back to drinking 3 days a week. Pt. states he had a mix drink and a beer last night. Pt. describes vomiting as "tomato soup" in color. Notes dark stool. Pt. denies cp, sob, cough, fever, syncope. Sxs are moderate in severity. Past hx of brugada syndrome, pace maker, PE and is currently on xarelto. No current modifying factors. - History of Current Complaint Chief Complaint: EDGIBleed Time Seen by Provider: 09/11/19 11:36 Stated Complaint: VOMITING BLOOD PER PT Hx Obtained From: Patient Pain Intensity: 3 - Additional Pertinent History Primary Care Physician: [id number] - Allergy/Home Medications Allergies/Adverse Reactions: Allergies Allergy/AdvReac Type Severity Reaction Status Date / Time No Known Allergies Allergy Verified 09/11/19 11:33 Home Medications: Home Medications Rivaroxaban TAB(*) [Xarelto 15 mg(*)] 20 mg PO DAILY 09/11/19 [History Confirmed 09/11/19] PMH/Surg Hx/FS Hx/Imm Hx Previously Healthy: Yes Endocrine/Hematology History: Denies: Hx Anticoagulant Therapy, Hx Diabetes Cardiovascular History: Reports: Hx Pacemaker/ICD, Other Cardiovascular Problems /Disorders - Hx of Brugada Syndrome post ICD placement Denies: Hx Congestive Heart Failure, Hx Hypertension, Hx Peripheral Vascular Disease History: Denies: Hx Renal Disease Sensory History: Denies: Hx Contacts or Glasses, Hx Legally Blind, Hx Deafness, Hx Hearing Aid Opthamlomology History: Denies: Hx Contacts or Glasses, Hx Legally Blind Neurological History: Denies: Hx Dementia, Hx Seizures, Hx Transient Ischemic Attacks (TIA) Psychiatric History: Reports: Hx Anxiety - per pt, Hx Attention Deficit Hyperactivity Disorder - per pt, Hx Depression - per pt, Hx Inpatient Treatment , Hx Bipolar Disorder, Hx Suicide Attempt, Hx Substance Abuse Denies: Hx Autism, Hx Eating Disorder, Hx Panic Disorder, Hx Post Traumatic Stress Disorder, Hx Community Mental Health Tx, Hx Schizophrenia, Hx of Violent Episodes Against Others, Other Psychiatric Issues/Disorders - possible BIPOLAR dx, psychiatric hospitalization in past. Drug use. - Surgical History Surgery Procedure, Year, and Place: HX OF METAL IN RIGHT EYE. Pacemaker/ defibrillator placement, 2014, [facility] Infectious Disease History: No Infectious Disease History: Denies: Hx Clostridium Difficile, Traveled Outside the [place] in Last 30 Days - Family History Known Family History: Positive: Other - alcoholism, PTSD Negative: Blood Disorder - Social History Occupation: Unemployed Lives: With Family Alcohol Use: Daily Alcohol Amount: 15-20 beers / day Hx Substance Use: Yes Substance Use Type: Reports: Marijuana Substance Use Comment - Amount & Last Used: meth, marijuana Hx Tobacco Use: Yes Smoking Status (MU): Heavy Every Day Tobacco Smoker Type: Cigarettes Review of Systems Constitutional: Negative Negative: Fever Cardiovascular: Negative Negative: Chest Pain Respiratory: Negative Negative: Shortness Of Breath Positive: Abdominal Pain, Vomiting, Nausea Neurological/Mental Status: Negative All Other Systems Reviewed And Are Negative: Yes Physical Exam Triage Information Reviewed: Yes Vital Signs On Initial Exam: Initial Vitals Temp Pulse Resp BP Pulse Ox 99.0 F 88 16 161/85 100 09/11/19 11:29 09/11/19 11:29 09/11/19 11:29 09/11/19 11:29 09/11/19 11:29 Vital Signs Reviewed: Yes Appearance: Positive: Well-Appearing - Pt. lying in bed in NAD. Appear uncomfortable but nontoxic. Skin: Positive: Warm, Dry Head/Face: Positive: Normal Head/Face Inspection Eyes: Positive: Normal, EOMI Neck: Positive: Supple Respiratory/Lung Sounds: Positive: Clear to Auscultation, Breath Sounds Present Cardiovascular: Positive: Normal, RRR Abdomen Description: Positive: Other: - Abd. is soft with epigastric tenderness. Rectal exam performed with ER aid, Oliva. No gross bleeding. ALEX showed dark brown stool. Neurological: Positive: Normal, CN Intact II-III Psychiatric: Positive: Affect/Mood Appropriate Procedures - Sedation Patient Received Moderate/Deep Sedation with Procedure: No Diagnostics - Vital Signs Vital Signs Temp Pulse Resp BP Pulse Ox 09/11/19 11:29 99.0 F 88 16 161/85 100 - Laboratory Result Diagrams: 09/11/19 11:58 09/11/19 11:58 Lab Statement: Any lab studies that have been ordered have been reviewed, and results considered in the medical decision making process. GIGU Course/Dx - Course Course Of Treatment: Pt. with c/o hematemesis. VS stable. Hx of alcohol abuse and is on Xarelto. Pt. started on IV fluids and given IV protonix. Labs unremarkable with stable H and H. Occult stool positive. Pt. has had no further vomiting in the ER. Cause discussed with Dr. Hylton who recommends admission for observation given hx of risk factors. GI made aware of case, Dr. Randi ruiz. Case discussed with Dr. Robbins who excepts pt. for admission. - Diagnoses Provider Diagnoses: Hematemesis, Alcohol abuse Discharge ED - Sign-Out/Discharge Documenting (check all that apply): Patient Departure - Discharge Plan Condition: Stable Disposition: [facility] Referrals: No Primary Care Phys,NOPCP [Primary Care Provider] - - Billing Disposition and Condition Condition: STABLE Disposition: Admitted to [facility]
--- OUTSIDE RECORDS SUMMARY | 2019-09-11 12:06 | XMS REPORT | Continuity of Care Document ---
:1995 External Reference #:[id number] Author Name Shashank Adhikari MD (transmitted by agent of provider Aimee Ware) Address [address] [place] [address] Care Team Providers Name Role Phone Shashank Adhikari MD - Hospitalist Care Team Information Sisal Operator [phone] Problems Description No Information Available Social History Type Date Description Comments Sex Unknown Allergies, Adverse Reactions, Alerts Description No Information Available Medications Description No Information Available Immunizations Description No Information Available Vital Signs Description No Information Available Results Description No Information Available Procedures Date Code Description Status 08/01/2019 98584 ECHO Transthorasic Realtime 2D W Doppler & Color Flow Hosp Completed 08/01/2019 62154 Interrogation Implant Cardiovasc Monitor System Incl Completed Analysis Int 08/01/2019 53776 Interrogation Device Eval In Person W/DR Completed Analysis,Single,Dual,Mul Medical Devices Description No Information Available Encounters Type Date Location Provider Dx Diagnosis Office Visit 08/01/2019 [facility] Gerson Cruz, R55 Syncope and 1:39p Of Internal Affairs Investigator DO FACC collapse Z95.810 Presence of automatic (implantable) cardiac defibrillator I26.99 Other pulmonary embolism without acute cor pulmonale F10.20 Alcohol dependence, uncomplicated Office Visit 08/01/2019 1:21p [facility] Shashank Adhikari, I26.99 Other pulmonary Assoc,syed ROSALES embolism without Hospitalists acute cor pulmonale R55 Syncope and collapse F10.10 Alcohol abuse, uncomplicated Assessments Date Code Description Provider 08/02/2019 I26.99 Other pulmonary embolism without acute Kierra Reina MD cor pulmonale 08/02/2019 F10.129 Alcohol abuse with intoxication, Kierra Reina MD unspecified 08/02/2019 R55 Syncope and collapse Kierra Reina MD 08/01/2019 R55 Syncope and collapse Gerson Lexy Cruz, DO [facility] 08/01/2019 Z95.810 Presence of automatic (implantable) Gerson Cruz, DO [facility] cardiac defibrillator 08/01/2019 I26.99 Other pulmonary embolism without acute Gerson Cruz, DO [facility] cor pulmonale 08/01/2019 I26.99 Other pulmonary embolism without acute Shashank Adhikari MD cor pulmonale 08/01/2019 F10.20 Alcohol dependence, uncomplicated Gerson Cruz, DO FAC 08/01/2019 R55 Syncope and collapse Shashank Adhikari MD 08/01/2019 F10.10 Alcohol abuse, uncomplicated Shashank Adhikari MD Plan of Treatment No Information Available Functional Status Description No Information Available Mental Status Description No Information Available Referrals Description No Information Available
--- OUTSIDE RECORDS SUMMARY | 2019-09-11 12:06 | XMS REPORT | Continuity of Care Document ---
:1993 External Reference #:[id number] Author Name Gerson Cruz, DO FACC (transmitted by agent of provider Jyoti Cameron) Address [address] [place] [address] Care Team Providers Name Role Phone Shashank Adhikari MD - Hospitalist Care Team Information Abrasive Mixer [phone] Problems Description No Information Available Social History Type Date Description Comments Sex Unknown Allergies, Adverse Reactions, Alerts Description No Information Available Medications Description No Information Available Immunizations Description No Information Available Vital Signs Description No Information Available Results Description No Information Available Procedures Date Code Description Status 08/01/2019 16731 ECHO Transthorasic Realtime 2D W Doppler & Color Flow Hosp Completed 08/01/2019 84342 Interrogation Implant Cardiovasc Monitor System Incl Completed Analysis Int 08/01/2019 31026 Interrogation Device Eval In Person W/DR Completed Analysis,Single,Dual,Mul Medical Devices Description No Information Available Encounters Type Date Location Provider Dx Diagnosis Office Visit 08/01/2019 [facility] Gerson Cruz, R55 Syncope and 1:39p Of Grinding Machine Operator Portable DO FACC collapse Z95.810 Presence of automatic (implantable) cardiac defibrillator I26.99 Other pulmonary embolism without acute cor pulmonale F10.20 Alcohol dependence, uncomplicated Office 03/01/2019 [facility] Lashay T43.592A Poisoning by oth Visit 11:07a Assocsyed [place] antipsychot/neurolept, Hospitalists self-harm, init Z95.810 Presence of automatic (implantable) cardiac defibrillator Office 02/28/2019 [facility] T43.592A Poisoning by oth Visit 11:07a Assoc,syed Onofre, antipsychot/neurolept, Hospitalists D.O. self-harm, init Office 02/27/2019 [facility] T43.592A Poisoning by oth Visit 11:07a Assoc,syed Onofre, antipsychot/neurolept, Hospitalists D.O. self-harm, init Assessments Date Code Description Provider 08/02/2019 I26.99 Other pulmonary embolism without acute Kierra Reina MD cor pulmonale 08/02/2019 F10.129 Alcohol abuse with intoxication, Kierra Reina MD unspecified 08/02/2019 R55 Syncope and collapse Kierra Reina MD 08/01/2019 R55 Syncope and collapse Gerson Cruz, DO FACC 08/01/2019 Z95.810 Presence of automatic (implantable) Gerson Cruz, DO FAC cardiac defibrillator 08/01/2019 I26.99 Other pulmonary embolism without acute Gerson S. Cruz, DO FACC cor pulmonale 08/01/2019 I26.99 Other pulmonary embolism without acute Shashank Adhikari MD cor pulmonale 08/01/2019 F10.20 Alcohol dependence, uncomplicated Gerson Cruz, DO FACC 08/01/2019 R55 Syncope and collapse Shashank Adhikari MD 08/01/2019 F10.10 Alcohol abuse, uncomplicated Shashank Adhikari MD 03/01/2019 T43.592A Poisoning by other antipsychotics and AMANDA Tapia neuroleptics, intentional self-harm, initial encounter 03/01/2019 Z95.810 Presence of automatic (implantable) AMANDA Tapia cardiac defibrillator 02/28/2019 T43.592A Poisoning by other antipsychotics and Jordyn Onofre D.O. neuroleptics, intentional self-harm, initial encounter 02/27/2019 T43.592A Poisoning by other antipsychotics and Jordyn Onofre D.O. neuroleptics, intentional self-harm, initial encounter Plan of Treatment No Information Available Functional Status Description No Information Available Mental Status Description No Information Available Referrals Description No Information Available
[2019-09-11 12:10] LABS: ABS Eosinophils 0.1 10^3/ul (0-0.6); ABS Lymphocytes 1.1 10^3/ul (1.0-4.8); ABS Monocytes 0.9 10^3/ul (0-0.8); ABS Neutrophils 9.5 10^3/ul (1.5-7.7); Eosinophil % 0.6 %; Hematocrit 44 % (42-52); Lymphocyte % 9.8 %; Mean Corpuscular HGB Conc 34 g/dL (31-36); Mean Corpuscular Hemoglobin 29 pg (27-31); Mean Corpuscular Volume 86 fL (80-94); Mean Platelet Volume 6.7 fL (7.4-10.4); Nucleated Red Blood Cells % 0.1; Platelet Count 313 10^3/uL (150-450); Red Blood Count 5.12 10^6 /uL (4.18-5.48); Red Cell Distribution Width 14 % (10-15); White Blood Count 11.6 10^3/uL (3.5-10.8)
[2019-09-11 12:19] LABS: Activated Partial Thrombo Time 42.9 seconds (26.0-38.0); INR 1.39 (0.82-1.09)
[2019-09-11 12:30] LABS: Albumin 4.2 g/dL (3.2-5.2); Albumin/Globulin Ratio 1.4 (1-3); BUN/Creatinine Ratio 16.3 (8-20); Calcium 9.2 mg/dL (8.6-10.3); EGFR African American 130.1 (>60); EGFR Non-African American 107.5 (>60); Globulin 2.9 g/dL (2-4); Potassium 4.4 mmol/L (3.5-5.0); Total Bilirubin 0.8 mg/dL (0.2-1.0); Total Protein 7.1 g/dL (6.4-8.9)
[2019-09-11] MEDS ORDERED: Ondansetron INJ* 2 MG/ML VIAL IV PRN (16:01)
[2019-09-11] MEDS ORDERED: NS 0.9% 1000 ML** 1,000 ML IV SCH (16:15)
[2019-09-11] MEDS ORDERED: Rivaroxaban TAB(*) 20 MG TAB PO SCH (18:00)
[2019-09-11] MEDS: Pantoprazole IV* 40 MG IV SCH (21:13)
--- NOTE | 2019-09-11 23:04 | HP ---
CC: Dr. Chavez; Candi Ye NP * HISTORY AND PHYSICAL: DATE OF ADMISSION: 09/11/19 PROVIDER: Kennedy Ornelas NP. PRIMARY CARE PROVIDER: Candi Ye NP. ATTENDING WHILE IN THE HOSPITAL: Dr. Jessica Kelly * (report dictated by Kennedy Ornelas NP). CHIEF COMPLAINT: Hematemesis. HISTORY OF PRESENT ILLNESS: José Molina is a 24-year-old male with past medical history of Brugada syndrome, status post ICD in 2013, pulmonary embolism 08/01, on anticoagulation therapy, anxiety and depression, and recent history of alcohol abuse and drug abuse. Mr. Molina comes into the ED today with reports of nausea and vomiting blood. The patient states that last evening he had 2 beers and mixed drink made with moonshine. He reports that he was slightly intoxicated when he went to bed last night after eating dinner of 2 well cooked hamburgers. The patient woke up around midnight and vomited, and then woke up again at 5 o'clock this morning with another episode of vomiting. From 5 o'clock until about approximately 8 a.m., he reports vomiting 4 more times and his vomit had the appearance of tomato soup. The patient reports that since vomiting began, he has had 3/10 abdominal pain. He attempted to drink water, but this made him severely nauseous. The patient denies any juanita blood in stool, but reports these had darker-colored stools recently. Since July, the patient has been treated for pulmonary embolism with Xarelto and reports that he takes it daily as ordered, missing just one dose a couple of weeks ago. Currently, the patient denies any drug use since July when he got "really drunk" and shot heroin and smoked meth. Also, reports that since his diagnosis of pulmonary embolism his alcohol intake has slowed down significantly, reports now drinks approximately 3 days a week totaling 15 beers where he would normally drink 15 beers daily. The patient also states that he ran out of Seroquel approximately 3 weeks ago which he was taking for anxiety, however, he does not feel anxious and does not feel he needs to resume medication as work helps to relieve his anxiety and he recently got out of bad relationship. The patient denies any chest pain. Denies shortness of breath or dizziness. Also denies having experienced ICD discharge. PAST MEDICAL HISTORY: Significant for: 1. Brugada syndrome. 2. Anxiety and depression. 3. Alcohol abuse. PAST SURGICAL HISTORY: ICD implant. HOME MEDICATIONS: Xarelto 20 mg p.o. daily. ALLERGIES: No known drug allergies. FAMILY HISTORY: The patient reports father is 50 years of age, alive and well, hypertension only. Mother is alive and well. She is 48 years of age. She has a history of Brugada pattern only. The patient also reports that his paternal grandfather had a history of blood clots in his lungs and maternal grandmother had a history of lung cancer. SOCIAL HISTORY: The patient denies smoking. The patient does report drinking 3 days a week with total of 15 beers. Surrogate decision maker is his mother, Ashley Montana. REVIEW OF SYSTEMS: There is no documented fevers. The patient denies any significant weight changes. Denies vision changes. Denies changes in hearing. Denies any rhinorrhea. The patient denies sore throat. Denies any thyroid enlargement. The patient denies chest pain, shortness of breath or dizziness. The patient reports 3/10 abdominal pain with nausea. Last time vomited was this morning around 8 a.m. The patient denies any dysuria or hematuria. The patient denies hematochezia. The patient denies any seizure history or loss of consciousness. Denies pruritus or skin ulcerations. Does report multiple abrasions on forearms related to his work. 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 A review of 14-systems completed, all others negative. PHYSICAL EXAMINATION GENERAL: At this time, Mr. Molina is a 24-year-old gentleman, who is of normal- build, average habitus, appears well hydrated. He is lying in bed with head elevated and does not appear to be in any acute distress. VITAL SIGNS: Temperature 98.7, heart rate 94, blood pressure 139/94, respiratory rate 18, oxygen saturation 97% on room air. HEENT: Head is atraumatic, normocephalic. Eyes: EOMs intact. Sclerae anicteric, not pale. Oral mucosa appears to be dry. No oropharyngeal erythema. Teeth intact. Good dentition. NECK: Supple. LUNGS: Lung sounds are clear to auscultation bilaterally. No wheezes, rales or rhonchi. CARDIAC: Heart sounds S1, S2. Regular rate and rhythm. No murmurs, rubs or gallops appreciated. ABDOMEN: Soft, flat, nontender. Bowel sounds are present x4 quadrants. EXTREMITIES: Pulses are 2+ throughout. Moving all extremities with 5/5 strength. Absent of edema. NEUROLOGIC: The patient is awake, alert, and oriented x4. Cnc Laser Operator equal. Tongue midline. Speech clear. No gross focal deficits. DIAGNOSTIC STUDIES/LAB DATA: WBC 11.6, HCV 15.0, HCT 44, PLT 313. INR 1.39, APPT 42.9. Sodium 139, potassium 4.4, chloride 105, carbon dioxide 29, BUN 14, creatinine 0.86, calcium 9.2. AST 19, ALT 16, alk phos 112. Lipase 20. EKG today showed normal sinus rhythm with a rate of 77. EKG is without any ST elevations or T-wave inversions. ASSESSMENT AND PLAN: Mr. Molina is a 24-year-old gentleman, who arrives at the ER today with complaints of hematemesis. We were asked to evaluate because of the patient's bloody vomitus, anticoagulation for PE, concern for GI bleed. The patient will be admitted under observation status for: 1. Nausea and vomiting, rule out Kitty-Cao tear. The patient has recent history of marked increased alcohol intake, and there is high suspect for potential for Kitty-Cao tear as the patient vomited multiple times this morning with what the patient describes as tomato soup looking vomitus. These complaints are particularly concerning due to the patient's recent anticoagulation therapy for PE with Xarelto. The patient is taking Xarelto 20 mg p.o. daily. However, the patient has not exhibited any more episodes of vomiting while in the ER. The patient does however, remain nauseous. The patient also had a positive stool occult for blood. However, he denies any obvious juanita blood in stools, although, he does report darker colored stools. Mr. Molina will be monitored for bloody stools and further hematemesis. Dr. Randi Smith was contacted for advice and she does not believe the patient needs to be scoped unless he does exhibit further hematemesis or significant drop in his hemoglobin, which at this point in time his hemoglobin is 15 and his hematocrit is 44. He does not show any evidence of low fluid volume. Denies any dizziness. Dr. Machado also suggested starting the PPI IV for which we will be administering Protonix 40 mg IV every 12 hours and if the patient does exhibit hematemesis, serial H and H every 8 hours will be ordered. If there is no hematemesis, CBC will be rechecked in the morning for likely discharge. The patient will also continue Xarelto as the benefits outweigh the risks at this point in time. The patient will also maintain on clear liquid diet and advance as tolerated. The patient is also provided with Zofran for further nausea and vomiting. 2. Brugada syndrome. The patient is stable. Denies any episodes of syncope, chest pain or shortness of breath. Denies ICD discharge and is well controlled at this time. 3. Pulmonary embolism. Unknown cause of the patient's pulmonary embolism on previous visit in July 2019. Factor V Leiden, prothrombin [id number] mutation was negative. [id number]-3-[id number]-IgG less than 9.4. Nrdl-5-[id number]-IgM antibodies less than 9.4. Anticardiolipin IgG antibody less than 9.4. Anticardiolipin IgM antibody less than 9.4. The patient has been stable without further pulmonary embolus or DVT while taking Xarelto. So, in light of the recent complaints of hematemesis and the stability of his hemoglobin and hematocrit, the patient's Xarelto will be continued at this time, and any further hematemesis will be considered for discontinuing this medication if the risks seem to outweigh the benefits. 4. DVT prophylaxis: The patient is continuing the Xarelto. 5. Code status: The patient is full code. 6. FEN: The patient will be started on clear liquid diet and advance as tolerated. TIME SPENT: Time spent on the admission was 60 minutes, greater than half of the time was spent [id number] with the patient obtaining my history and physical, the other half the time was spent going over the plan of care with the patient and implementing my plan of care. I did discuss plan of care with my attending, Dr. Kelly, and she is in agreement. KENNEDY ORNELAS, CLINICAL TRIAL DATA MANAGER [id number]/[facility] #: [id number] [facility] HEALTH SYSTEMKelsey
[2019-09-12 05:59] LABS: ABS Eosinophils 0.1 10^3/ul (0-0.6); ABS Lymphocytes 1.4 10^3/ul (1.0-4.8); ABS Monocytes 0.7 10^3/ul (0-0.8); ABS Neutrophils 5.9 10^3/ul (1.5-7.7); Eosinophil % 1.4 %; Hematocrit 41 % (42-52); Lymphocyte % 17.2 %; Mean Corpuscular HGB Conc 34 g/dL (31-36); Mean Corpuscular Hemoglobin 30 pg (27-31); Mean Corpuscular Volume 87 fL (80-94); Mean Platelet Volume 7.1 fL (7.4-10.4); Platelet Count 269 10^3/uL (150-450); Red Blood Count 4.73 10^6 /uL (4.18-5.48); Red Cell Distribution Width 14 % (10-15)
--- NOTE | 2019-09-12 08:26 | PN ---
Subjective Date of Service: 09/12/19 Interval History: Pt reports that he is no longer nauseous at this time. Denies vomiting overnight , however at some point last night he reports that he drank a glass of water very quickly and became nauseous. Pt denies any BM's and requesting to be discharged today. Family History: Unchanged from Admission Social History: Unchanged from Admission Past Medical History: Unchanged from Admission Objective Active Medications: Ondansetron HCl (Zofran Inj*) 4 mg IV Q4H PRN PRN Reason: NAUSEA/VOMITING Pantoprazole Sodium (Protonix Iv*) 40 mg IV Q12H [facility] Last Admin: 09/11/19 21:13 Dose: 40 mg Rivaroxaban (Xarelto(*)) 20 mg PO QPM [facility] Last Admin: 09/11/19 18:05 Dose: 20 mg Vital Signs - 8 hr 09/12/19 09/12/19 03:01 07:38 Temperature 97.6 F 98 F Pulse Rate 69 65 Respiratory 14 16 Rate Blood Pressure 133/65 134/63 (mmHg) O2 Sat by Pulse 100 100 Oximetry Oxygen Devices in Use Now: None Appearance: Young man, average build laying in bed. Does not appear to be in any distress Eyes: No Scleral Icterus, PERRLA Ears/Nose/Mouth/Throat: NL Teeth, Lips, Gums, Clear Oropharnyx, Mucous Membranes Moist Neck: NL Appearance and Movements; NL JVP, Trachea Midline, No Thyroid Enlargement, Masses Respiratory: Symmetrical Chest Expansion and Respiratory Effort, Clear to Auscultation Cardiovascular: NL Sounds; No Murmurs; No JVD, RRR, No Edema Abdominal: NL Sounds; No Tenderness; No Distention, No Hepatosplenomegaly Lymphatic: No Cervical Adenopathy Extremities: No Edema, No Clubbing, Cyanosis Skin: No Rash or Ulcers, No Nodules or Sclerosis Neurological: Alert and Oriented x 3, NL Sensation, NL Gait, NL Muscle Strength and Tone Nutrition: Taking PO's Result Diagrams: 09/12/19 05:26 09/11/19 11:58 Microbiology and Other Data: Microbiology 09/11/19 13:22 Stool Occult Blood (TIFFANIE) - Final Stool Assess/Plan/Problems-Billing Assessment: 24 yo gentleman with history of Brugada syndrome with ICD and anticoagulation, Anxiety, Depression, Substance abuse, Alcohol abuse arrives at ER for complaints of hematemesis. - Patient Problems (1) Nausea & vomiting Current Visit: Yes Comment: -pt denies further vomiting over night. No vomiting in approx 12 hours. pt denies nausea at this this time. -No further evidence of GI bleed presently. -pt has not required any antiemetics since admission to hospital (2) Brugada syndrome Current Visit: Yes Comment: -Pt is without any syncope, near syncope, or dizziness and denies any complaints in the recent past and denies ICD discharge -Pat has history of brugada syndrome-now on ICD -has family history as well; on mother-No siblings (3) DVT prophylaxis Current Visit: Yes Comment: -on xarelto (4) Full code status Current Visit: Yes Status and Disposition: Stable observation
[2019-09-12] MEDS: Pantoprazole IV* 40 MG IV SCH (08:59)
[2019-09-12 12:02] VITALS: BP 135/70
--- NOTE | 2019-09-12 20:13 | DS ---
CC: Candi Ye NP * DISCHARGE SUMMARY: DATE OF ADMISSION: 09/11/19 DATE OF DISCHARGE: 09/12/19 PROVIDER: Kennedy Ornelas NP PRIMARY CARE PROVIDER: Candi Ye NP ATTENDING PHYSICIAN: Dr. Jordyn Onofre.* (DICTATED BY KENNEDY ORNELAS NP) PRIMARY DIAGNOSIS: Nausea and vomiting, rule out Kitty-Cao tear. SECONDARY DIAGNOSES: 1. Brugada syndrome. 2. Pulmonary embolism. PERTINENT STUDIES WHILE IN THE HOSPITAL: 1. ECG, 09/11/19: Sinus rhythm, rate 77, without any ST elevations or T-wave inversions. PERTINENT LAB RESULTS: White blood cell 8.0, hemoglobin 14.0, hematocrit 41, platelets 269. Sodium 139, potassium 4.4, chloride 105, carbon dioxide 29, BUN 14, creatinine 0.86, calcium 9.2. AST 19, ALT 16, alkaline phosphatase 112. Lipase 20. INR 1.39, APTT 42.9. PROCEDURES/CONSULTATIONS: There were no procedures or consultations while in the hospital. HISTORY OF PRESENT ILLNESS AND HOSPITAL COURSE: Mr. Molina is a 24-year-old gentleman with a past medical history of pulmonary embolism, currently on anticoagulation; Brugada syndrome, with ICD placement in 2013; anxiety; depression; substance abuse; alcohol abuse. The patient reports to the ER with complaint of multiple episodes of hematemesis between 5 a.m. and 8 a.m. on 09/10. The patient reported that he went to bed after dinner and drinking 2 beers and 1 mixed drink. He was slightly intoxicated. He woke up around midnight and vomited, went back to bed, woke up again at approximately 5 a.m., vomited again, reports vomitus having tomato soup appearance. Between the hours of 5 a.m. and 8 a.m., he vomited approximately 3 to 4 more times with same results. While in the ER, the patient was hydrated with 1 L of normal saline, provided with 40 mg pantoprazole IV push. Hospitalist medicine was contacted for admission. It is suspected that the patient has Kitty- Cao tear, which active bleeding appears to have resolved as the patient has not exhibited further hematemesis while in the hospital. The patient did continue to complain of nausea for which he was offered Zofran, which the patient declined. It was decided that Mr. Molina could continue his Xarelto as he was not exhibiting further hematemesis. The benefits for this patient out weight the risks of anticoagulation as Mr. Molina was diagnosed with pulmonary embolism in July 2019. His H & H were stable at 15 and 44 on 09/11/19 and on morning of 09/12/19, H and H were 14 and 41, suspect slight decrease was due to dilution as patient received total of 2 L NS while admitted. There was no concern that the patient was having an active GI bleed although his stool was positive for blood, he reports only darker stools recently, denies juanita blood in stool. As mentioned, the patient did not exhibit further hematemesis while in the ER or admitted to the hospital. The patient is requesting to be discharged today. I do not feel that it would be imprudent to allow the patient to be discharged as he is hemodynamically stable and there is no evidence of further bleed. PHYSICAL EXAMINATION: Please see progress note from 09/12/19. Mr. Molina is stable for discharge. Most recent vital signs are as follows: Temp 98.5, heart rate 71, respiratory rate 18, oxygen saturation 99% on room air , blood pressure 135/70. DISCHARGE MEDICATIONS: New medication: Pantoprazole 40 mg p.o. daily x14 days. Continued medication: Xarelto 20 mg p.o. daily. DISCHARGE PLAN: Diet: Regular diet; however, the patient was instructed to start slowly with introducing foods, start with BRAT diet, bananas, rice, applesauce and toast and introduce less bland foods as tolerated to avoid upsetting GI tract. The patient may resume normal activity when he is in to work. Avoid vomiting as this can cause damage to the lining of the esophagus or stomach. Continue to cut back on alcohol consumption and if you can avoid drinking altogether you should. Follow up with your primary care physician in 7 to 10 days. If you experience severe abdominal pain, vomiting up blood, passing blood in the stool, chest pain, dizziness, passing out, return to the nearest ER for evaluation. Be sure you are social distancing, try to avoid being within 6 feet of other people, be sure you avoid touching your face and wash your hands frequently. DISCHARGE CONDITION: Stable. DISCHARGE DISPOSITION: Home. This is a summarized report of Mr. Molina's medical history and hospital stay. For further details, please see the entire medical record. TIME SPENT: Approximately 30 minutes on this discharge. KENNEDY ORNELAS, EUGENE [id number]/[facility] #: [id number] MTDD
== END 2019-09-12 13:20 | disposition home or self-care (01) ==
LOC: ED 11:19 → SSU 16:01
PROVIDERS: ADMIT Internal Medicine; ATTEND Hospitalist
DX: R11.2 Nausea with vomiting, unspecified (principal); I49.8 Other specified cardiac arrhythmias; I26.99 Other pulmonary embolism without acute cor pulmonale; F10.10 Alcohol abuse, uncomplicated; F41.9 Anxiety disorder, unspecified; F32.9 Major depressive disorder, single episode, unspecified; Z79.01 Long term (current) use of anticoagulants; Z79.899 Other long term (current) drug therapy; Z95.810 Presence of automatic (implantable) cardiac defibrillator
CPT/HCPCS: 36415; 80053; 82272; 83690; 85025; 85302; 85303; 85306; 85610; 85730; 86850; 86900; 86901; 93005; 96361; 96374; 96375; 96376; 99284; G0378